=== PATIENT | male | born 1980 | race Caucasian/White ===

== ENCOUNTER 2017-11-01 16:35 | Emergency (ER) | payer OTHER ==
[~2017-11-01] VITALS: Ht 170.2 cm; Wt 104.3 kg
[~2017-11-01 16:35] MED LIST: ALBU90OI INH; CODGUAEL PO; CRUTCH USE; CYCL10 PO; DEXT30SU PO; HYDACE5 PO; IBUP600 PO; IBUP800 PO; Lisinopril2.5 MG; METO25ER; NAPR500 PO; Norco 5-325 Ta1 EACH PO; Percocet 5-3251 EACH PO; Ultram50 MG PO
[2017-11-01] MEDS ORDERED: HYDCHL12.5 PO (16:54)
[2017-11-01] MEDS ORDERED: LISI20 PO (16:54)
[2017-11-01 17:52] LABS: BASOPHILS ABSOLUTE AUTO 0.02 K/mm3 (0.00-0.23); BASOPHILS PERCENT AUTO 0 % (0-2); EOSINOPHILS ABSOLUTE AUTO 0.33 K/mm3 (0.00-0.68); EOSINOPHILS PERCENT AUTO 6 % (0-6); Hematocrit 45.4 % (37.0-53.0); Hemoglobin 15.5 g/dL (13.5-17.5); IMMATURE GRAN ABSOLUTE AUTO 0.01 K/mm3 (0.00-0.10); IMMATURE GRAN PERCENT AUTO 0 % (0-1); LYMPHOCYTES ABSOLUTE AUTO 2.27 K/mm3 (0.84-5.20); LYMPHOCYTES PERCENT AUTO 39 % (21-46); MONOCYTES PERCENT AUTO 7 % (4-13); Mean Corpuscular HGB 28.5 pg (26.0-34.0); Mean Corpuscular HGB Conc 34.1 g/dL (31.5-36.5); Mean Corpuscular Volume 84 fL (80-100); Mean Platelet Volume 11.2 fL (9.1-12.4); NEUTROPHILS ABSOLUTE AUTO 2.85 K/mm3 (1.96-9.15); NEUTROPHILS PERCENT AUTO 49 % (41-73); Platelet Count 174 K/mm3 (150-400); RDW Coefficient Variation 13.4 % (11.7-14.2); RDW Standard Deviation 40.1 fL (35.1-46.3); Red Blood Cell Count 5.44 M/mm3 (4.30-5.90); White Blood Cell Count 5.88 K/mm3 (4.00-11.30)
[2017-11-01 18:07] LABS: Alanine Aminotransfer (ALT/SGP 62 U/L (12-78); Albumin, Blood 3.6 g/dL (3.4-5.0); Albumin/Globulin Ratio 1.1 (0.8-1.8); Alk Phos 82 U/L (50-136); Anion Gap 9 mmol/L (6-16); Aspartate Aminotrans (AST/SGOT 29 U/L (12-37); Bilirubin, Total 0.4 mg/dL (0.1-1.0); Blood Urea Nitrogen 10 mg/dL (8-24); Bun/Creatinine Ratio 10.5 (12.0-20.0); CO2, Blood 23 mmol/L (21-32); Chloride, Blood 107 mmol/L (98-108); Creatinine, Blood 0.95 mg/dL (0.60-1.20); Globulin, Blood 3.4 g/dL (2.2-4.0); Glomerular Filtration Rate >60 (60-); Glucose, Blood 136 mg/dL (70-99); Sodium, Blood 139 mmol/L (136-145); Troponin I <0.015 ng/mL (0.000-0.040)
[2018-02-16] MEDS ORDERED: Omeprazole20 M1 PO (03:15)
[2018-02-16] MEDS ORDERED: ALBU90OI INH (03:28)
[2018-02-17] MEDS ORDERED: ACET325 PO (15:11)
[2018-02-17] MEDS ORDERED: LISI5 PO (15:12)
[2018-02-17] MEDS ORDERED: DOCU100 PO (15:12)
[2018-02-17] MEDS ORDERED: ROXICODONE5 MG PO (15:13)
[2018-09-20] MEDS ORDERED: IBUP800 PO (07:07)
== END 2017-11-01 22:29 | disposition home or self-care (01) ==
LOC: ER 16:35
PROVIDERS: Emergency Medicine
DX: R07.9 Chest pain, unspecified (principal); F17.200 Nicotine dependence, unspecified, uncomplicated; Z79.899 Other long term (current) drug therapy
CPT/HCPCS: 36415; 71046; 80053; 84484; 85025; 93005; 93010; 99284

== ENCOUNTER 2017-11-07 09:43 | Emergency (ER) | payer OTHER ==
[~2017-11-07] VITALS: Ht 170.2 cm; Wt 104.3 kg
[~2017-11-07 09:43] MED LIST changes: +HYDCHL12.5 PO; +LISI20 PO
[2017-11-07 10:41] LABS: BASOPHILS ABSOLUTE AUTO 0.01 K/mm3 (0.00-0.23); BASOPHILS PERCENT AUTO 0 % (0-2); EOSINOPHILS ABSOLUTE AUTO 0.27 K/mm3 (0.00-0.68); EOSINOPHILS PERCENT AUTO 5 % (0-6); Hematocrit 47.8 % (37.0-53.0); Hemoglobin 16.1 g/dL (13.5-17.5); IMMATURE GRAN ABSOLUTE AUTO 0.01 K/mm3 (0.00-0.10); IMMATURE GRAN PERCENT AUTO 0 % (0-1); LYMPHOCYTES ABSOLUTE AUTO 1.81 K/mm3 (0.84-5.20); LYMPHOCYTES PERCENT AUTO 36 % (21-46); MONOCYTES ABSOLUTE AUTO 0.34 K/mm3 (0.16-1.47); MONOCYTES PERCENT AUTO 7 % (4-13); Mean Corpuscular HGB Conc 33.7 g/dL (31.5-36.5); Mean Corpuscular Volume 83 fL (80-100); Mean Platelet Volume 11.5 fL (9.1-12.4); NEUTROPHILS ABSOLUTE AUTO 2.64 K/mm3 (1.96-9.15); NEUTROPHILS PERCENT AUTO 52 % (41-73); Platelet Count 185 K/mm3 (150-400); RDW Coefficient Variation 13.3 % (11.7-14.2); RDW Standard Deviation 39.8 fL (35.1-46.3); Red Blood Cell Count 5.76 M/mm3 (4.30-5.90); White Blood Cell Count 5.08 K/mm3 (4.00-11.30)
[2017-11-07 11:00] LABS: Alanine Aminotransfer (ALT/SGP 59 U/L (12-78); Albumin, Blood 3.9 g/dL (3.4-5.0); Albumin/Globulin Ratio 1.2 (0.8-1.8); Alk Phos 76 U/L (50-136); Anion Gap 5 mmol/L (6-16); Aspartate Aminotrans (AST/SGOT 20 U/L (12-37); Bilirubin, Total 0.3 mg/dL (0.1-1.0); Blood Urea Nitrogen 16 mg/dL (8-24); Bun/Creatinine Ratio 16.9 (12.0-20.0); CO2, Blood 28 mmol/L (21-32); Calcium, Blood 8.4 mg/dL (8.5-10.1); Chloride, Blood 105 mmol/L (98-108); Creatinine, Blood 0.95 mg/dL (0.60-1.20); Globulin, Blood 3.2 g/dL (2.2-4.0); Glomerular Filtration Rate >60 (60-); Glucose, Blood 106 mg/dL (70-99); Potassium, Blood 4.1 mmol/L (3.5-5.5); Sodium, Blood 138 mmol/L (136-145); Total Protein, Blood 7.1 g/dL (6.4-8.2)
[2017-11-07] MEDS ORDERED: Norco 5-325 Ta1 EACH PO (14:14)
[2018-02-16] MEDS ORDERED: Omeprazole20 M1 PO (03:15)
[2018-02-16] MEDS ORDERED: ALBU90OI INH (03:28)
[2018-02-17] MEDS ORDERED: ACET325 PO (15:11)
[2018-02-17] MEDS ORDERED: DOCU100 PO (15:12)
[2018-02-17] MEDS ORDERED: LISI5 PO (15:12)
[2018-02-17] MEDS ORDERED: ROXICODONE5 MG PO (15:13)
[2018-09-20] MEDS ORDERED: IBUP800 PO (07:07)
== END 2017-11-07 14:24 | disposition home or self-care (01) ==
LOC: ER 09:43
PROVIDERS: Psychiatry & Neurology Psychiatry
DX: K62.5 Hemorrhage of anus and rectum (principal); K76.0 Fatty (change of) liver, not elsewhere classified; I10 Essential (primary) hypertension; K57.10 Diverticulosis of small intestine without perforation or abscess without bleeding; F17.200 Nicotine dependence, unspecified, uncomplicated; Z79.899 Other long term (current) drug therapy
CPT/HCPCS: 36415; 74177; 80053; 82272; 83605; 83690; 85025; 86850; 86900; 86901; 93005; 93010; 96361; 96374; 96375; 99284; J2270; J2405; J7030; Q9967

== ENCOUNTER 2017-12-10 22:01 | Emergency (ER) | payer OTHER ==
[~2017-12-10] VITALS: Ht 170.2 cm; Wt 103.0 kg
[2017-12-10 22:35] LABS: BASOPHILS ABSOLUTE AUTO 0.03 K/mm3 (0.00-0.23); BASOPHILS PERCENT AUTO 0 % (0-2); EOSINOPHILS ABSOLUTE AUTO 0.19 K/mm3 (0.00-0.68); EOSINOPHILS PERCENT AUTO 2 % (0-6); Hemoglobin 14.4 g/dL (13.5-17.5); IMMATURE GRAN ABSOLUTE AUTO 0.03 K/mm3 (0.00-0.10); IMMATURE GRAN PERCENT AUTO 0 % (0-1); LYMPHOCYTES ABSOLUTE AUTO 2.25 K/mm3 (0.84-5.20); LYMPHOCYTES PERCENT AUTO 25 % (21-46); MONOCYTES ABSOLUTE AUTO 0.49 K/mm3 (0.16-1.47); MONOCYTES PERCENT AUTO 6 % (4-13); Mean Corpuscular HGB 27.4 pg (26.0-34.0); Mean Corpuscular HGB Conc 33.5 g/dL (31.5-36.5); Mean Corpuscular Volume 82 fL (80-100); Mean Platelet Volume 10.6 fL (9.1-12.4); NEUTROPHILS ABSOLUTE AUTO 5.99 K/mm3 (1.96-9.15); NEUTROPHILS PERCENT AUTO 67 % (41-73); Platelet Count 210 K/mm3 (150-400); RDW Coefficient Variation 12.6 % (11.7-14.2); RDW Standard Deviation 37.6 fL (35.1-46.3); Red Blood Cell Count 5.25 M/mm3 (4.30-5.90); White Blood Cell Count 8.98 K/mm3 (4.00-11.30)
[2017-12-10 22:53] LABS: Alanine Aminotransfer (ALT/SGP 53 U/L (12-78); Albumin, Blood 3.5 g/dL (3.4-5.0); Alk Phos 72 U/L (50-136); Anion Gap 8 mmol/L (6-16); Aspartate Aminotrans (AST/SGOT 22 U/L (12-37); Bilirubin, Total 0.2 mg/dL (0.1-1.0); Blood Urea Nitrogen 10 mg/dL (8-24); Bun/Creatinine Ratio 10.5 (12.0-20.0); CO2, Blood 26 mmol/L (21-32); Calcium, Blood 8.4 mg/dL (8.5-10.1); Chloride, Blood 107 mmol/L (98-108); Creatinine, Blood 0.96 mg/dL (0.60-1.20); Globulin, Blood 3.6 g/dL (2.2-4.0); Glomerular Filtration Rate >60 (60-); Glucose, Blood 106 mg/dL (70-99); Potassium, Blood 3.5 mmol/L (3.5-5.5); Sodium, Blood 141 mmol/L (136-145); Total Protein, Blood 7.1 g/dL (6.4-8.2)
[2017-12-11] MEDS ORDERED: Zofran Odt4 MG PO (00:06)
[2018-02-16] MEDS ORDERED: Omeprazole20 M1 PO (03:15)
[2018-02-16] MEDS ORDERED: ALBU90OI INH (03:28)
[2018-02-17] MEDS ORDERED: ACET325 PO (15:11)
[2018-02-17] MEDS ORDERED: LISI5 PO (15:12)
[2018-02-17] MEDS ORDERED: DOCU100 PO (15:12)
[2018-02-17] MEDS ORDERED: ROXICODONE5 MG PO (15:13)
[2018-09-20] MEDS ORDERED: IBUP800 PO (07:07)
== END 2017-12-11 00:15 | disposition home or self-care (01) ==
LOC: ER 22:01
PROVIDERS: Emergency Medicine
DX: G89.18 Other acute postprocedural pain (principal); R10.31 Right lower quadrant pain; R11.2 Nausea with vomiting, unspecified; F17.210 Nicotine dependence, cigarettes, uncomplicated
CPT/HCPCS: 36415; 74177; 80053; 83690; 85025; 96361; 96374; 96375; 96376; 99284; J2270; J2405; J7030; Q9967

== ENCOUNTER 2017-12-28 16:40 | Emergency (ER) | payer OTHER ==
[~2017-12-28] VITALS: Ht 170.2 cm; Wt 102.5 kg
[~2017-12-28 16:40] MED LIST changes: +Zofran Odt4 MG PO
[2017-12-28 17:59] LABS: BASOPHILS ABSOLUTE AUTO 0.02 K/mm3 (0.00-0.23); BASOPHILS PERCENT AUTO 0 % (0-2); EOSINOPHILS ABSOLUTE AUTO 0.22 K/mm3 (0.00-0.68); EOSINOPHILS PERCENT AUTO 4 % (0-6); Hematocrit 45.2 % (37.0-53.0); Hemoglobin 14.7 g/dL (13.5-17.5); IMMATURE GRAN ABSOLUTE AUTO 0.02 K/mm3 (0.00-0.10); IMMATURE GRAN PERCENT AUTO 0 % (0-1); LYMPHOCYTES ABSOLUTE AUTO 1.59 K/mm3 (0.84-5.20); LYMPHOCYTES PERCENT AUTO 26 % (21-46); MONOCYTES ABSOLUTE AUTO 0.45 K/mm3 (0.16-1.47); MONOCYTES PERCENT AUTO 7 % (4-13); Mean Corpuscular HGB 27.4 pg (26.0-34.0); Mean Corpuscular HGB Conc 32.5 g/dL (31.5-36.5); Mean Corpuscular Volume 84 fL (80-100); Mean Platelet Volume 10.7 fL (9.1-12.4); NEUTROPHILS ABSOLUTE AUTO 3.86 K/mm3 (1.96-9.15); NEUTROPHILS PERCENT AUTO 63 % (41-73); Platelet Count 170 K/mm3 (150-400); RDW Coefficient Variation 14.2 % (11.7-14.2); RDW Standard Deviation 43.2 fL (35.1-46.3); Red Blood Cell Count 5.37 M/mm3 (4.30-5.90); White Blood Cell Count 6.16 K/mm3 (4.00-11.30)
[2017-12-28 18:22] LABS: Alanine Aminotransfer (ALT/SGP 36 U/L (12-78); Albumin, Blood 3.8 g/dL (3.4-5.0); Albumin/Globulin Ratio 1.1 (0.8-1.8); Alk Phos 77 U/L (50-136); Anion Gap 7 mmol/L (6-16); Aspartate Aminotrans (AST/SGOT 23 U/L (12-37); Bilirubin, Total 0.5 mg/dL (0.1-1.0); Blood Urea Nitrogen 12 mg/dL (8-24); Bun/Creatinine Ratio 14.5 (12.0-20.0); CO2, Blood 26 mmol/L (21-32); Calcium, Blood 8.2 mg/dL (8.5-10.1); Chloride, Blood 107 mmol/L (98-108); Creatinine, Blood 0.83 mg/dL (0.60-1.20); Globulin, Blood 3.5 g/dL (2.2-4.0); Glomerular Filtration Rate >60 (60-); Glucose, Blood 115 mg/dL (70-99); Potassium, Blood 3.8 mmol/L (3.5-5.5); Sodium, Blood 140 mmol/L (136-145); Total Protein, Blood 7.3 g/dL (6.4-8.2)
[2017-12-28] MEDS ORDERED: Cipro500 MG PO (20:26)
[2017-12-28] MEDS ORDERED: Flagyl500 MG PO (20:26)
[2018-02-16] MEDS ORDERED: Omeprazole20 M1 PO (03:15)
[2018-02-16] MEDS ORDERED: ALBU90OI INH (03:28)
[2018-02-17] MEDS ORDERED: ACET325 PO (15:11)
[2018-02-17] MEDS ORDERED: LISI5 PO (15:12)
[2018-02-17] MEDS ORDERED: DOCU100 PO (15:12)
[2018-02-17] MEDS ORDERED: ROXICODONE5 MG PO (15:13)
[2018-09-20] MEDS ORDERED: IBUP800 PO (07:07)
== END 2017-12-28 20:37 | disposition home or self-care (01) ==
LOC: ER 16:40
PROVIDERS: Emergency Medicine
DX: R10.31 Right lower quadrant pain (principal); K92.1 Melena; Z88.8 Allergy status to other drugs, medicaments and biological substances; F17.210 Nicotine dependence, cigarettes, uncomplicated
CPT/HCPCS: 36415; 74177; 80053; 83690; 85025; 96361; 96374; 99284; J1170; J7030; Q9967

== ENCOUNTER 2018-07-24 19:34 | Emergency (ER) | payer OTHER ==
[~2018-07-24] VITALS: Ht 170.2 cm; Wt 77.1 kg
[~2018-07-24 19:34] MED LIST changes: +ACET325 PO; +Cipro500 MG PO; +DOCU100 PO; +Flagyl500 MG PO; +LISI5 PO; +Omeprazole20 M1 PO; +ROXICODONE5 MG PO
== END 2018-07-24 20:37 | disposition home or self-care (01) ==
LOC: ER 19:34
DX: S00.432A Contusion of left ear, initial encounter (principal); S00.93XA Contusion of unspecified part of head, initial encounter; I10 Essential (primary) hypertension; F17.210 Nicotine dependence, cigarettes, uncomplicated; Z88.8 Allergy status to other drugs, medicaments and biological substances; Y04.2XXA Assault by strike against or bumped into by another person, initial encounter
CPT/HCPCS: 70450; 99284-25

== ENCOUNTER 2019-04-09 11:50 | Inpatient (IN) | payer OTHER ==
[~2019-04-09] VITALS: Ht 170.2 cm; Wt 84.0 kg
[2019-04-09 12:18] LABS: BASOPHILS ABSOLUTE AUTO 0.06 K/mm3 (0.00-0.23); BASOPHILS PERCENT AUTO 1 % (0-2); EOSINOPHILS PERCENT AUTO 3 % (0-6); Hematocrit 47.4 % (37.0-53.0); Hemoglobin 15.1 g/dL (13.5-17.5); IMMATURE GRAN ABSOLUTE AUTO 0.01 K/mm3 (0.00-0.10); IMMATURE GRAN PERCENT AUTO 0 % (0-1); LYMPHOCYTES ABSOLUTE AUTO 1.23 K/mm3 (0.84-5.20); LYMPHOCYTES PERCENT AUTO 17 % (21-46); MONOCYTES ABSOLUTE AUTO 0.33 K/mm3 (0.16-1.47); MONOCYTES PERCENT AUTO 4 % (4-13); Mean Corpuscular HGB 27.5 pg (26.0-34.0); Mean Corpuscular HGB Conc 31.9 g/dL (31.5-36.5); Mean Corpuscular Volume 86 fL (80-100); Mean Platelet Volume 11.1 fL (9.1-12.4); NEUTROPHILS ABSOLUTE AUTO 5.59 K/mm3 (1.96-9.15); NEUTROPHILS PERCENT AUTO 75 % (41-73); Platelet Count 216 K/mm3 (150-400); RDW Coefficient Variation 13.4 % (11.7-14.2); RDW Standard Deviation 42.5 fL (35.1-46.3); Red Blood Cell Count 5.49 M/mm3 (4.30-5.90); White Blood Cell Count 7.42 K/mm3 (4.00-11.30)
[2019-04-09 12:39] LABS: Alanine Aminotransfer (ALT/SGP 36 U/L (12-78); Albumin, Blood 3.4 g/dL (3.4-5.0); Albumin/Globulin Ratio 0.9 (0.8-1.8); Alk Phos 90 U/L (50-136); Anion Gap 4 mmol/L (6-16); Aspartate Aminotrans (AST/SGOT 26 U/L (12-37); Bilirubin, Total 0.5 mg/dL (0.1-1.0); Blood Urea Nitrogen 15 mg/dL (8-24); Bun/Creatinine Ratio 16.3 (12.0-20.0); CO2, Blood 30 mmol/L (21-32); Chloride, Blood 106 mmol/L (98-108); Creatinine, Blood 0.92 mg/dL (0.60-1.20); Globulin, Blood 3.8 g/dL (2.2-4.0); Glomerular Filtration Rate >60 (60-); Glucose, Blood 96 mg/dL (70-99); Potassium, Blood 4.1 mmol/L (3.5-5.5); Sodium, Blood 140 mmol/L (136-145); Total Protein, Blood 7.2 g/dL (6.4-8.2); Troponin I 0.028 ng/mL (0.000-0.040)
[2019-04-09 14:22] LABS: Source, Urine Clean Catch
[2019-04-09 14:25] LABS: Bilirubin, Urine Neg (Neg); Blood, Urine Neg (Neg); Glucose Qualitative, Urine Neg (Neg); Ketones, Urine Neg (Neg); Leukocyte Esterase, Urine Neg (Neg); Nitrite, Urine Neg (Neg); Protein, Urine 1+ (Neg); Specific Gravity, Urine 1.015 (1.003-1.022); Urobilinogen, Urine NORM (Normal)
[2019-04-09 14:27] LABS: Appearance, Urine Clear (Clear); Color, Urine Yellow (P-Yellow)
[2019-04-09 14:37] LABS: U Amphetamine Screen DETECTED; U Barbituate Screen Not Detected; U Benzodiazapine Screen Not Detected; U Buprenorphine Screen Not Detected; U Cannabinoids Screen Not Detected; U Cocaine Screen Not Detected; U Methadone Screen Not Detected; U Methamphetamine Screen Not Detected; U Opiates Screen Not Detected; U Oxycodone Screen Not Detected; U Phencyclidine Screen Not Detected; U Propoxyphene Screen Not Detected
[2019-04-10 00:54] LABS: Hematocrit 46.7 % (37.0-53.0); Mean Corpuscular HGB 27.3 pg (26.0-34.0); Mean Corpuscular HGB Conc 32.1 g/dL (31.5-36.5); Mean Corpuscular Volume 85 fL (80-100); Mean Platelet Volume 10.6 fL (9.1-12.4); Platelet Count 217 K/mm3 (150-400); RDW Coefficient Variation 13.4 % (11.7-14.2); RDW Standard Deviation 41.1 fL (35.1-46.3); Red Blood Cell Count 5.49 M/mm3 (4.30-5.90); White Blood Cell Count 7.34 K/mm3 (4.00-11.30)
[2019-04-10 01:09] LABS: Anion Gap 6 mmol/L (6-16); Blood Urea Nitrogen 14 mg/dL (8-24); Bun/Creatinine Ratio 16.8 (12.0-20.0); CO2, Blood 27 mmol/L (21-32); Calcium, Blood 8.4 mg/dL (8.5-10.1); Chloride, Blood 107 mmol/L (98-108); Creatinine, Blood 0.83 mg/dL (0.60-1.20); Glomerular Filtration Rate >60 (60-); Glucose, Blood 90 mg/dL (70-99); Potassium, Blood 4.2 mmol/L (3.5-5.5); Sodium, Blood 140 mmol/L (136-145)
--- NOTE | 2019-04-10 01:27 | NUR ---
Assumed care of pt at approx 1999. Report recieved from ATUL Gross. Pt transferred from ED via [facility] transported with RN at bedside. Pt hypertensive and tachycardic at time of arrival. Pt denies chest pain, chest pressure, or SOB. Pt lethargic and falling in and out of sleep frequently. Pt oriented x4, states generalized pain but cannot specify location or other qualities, pt falls asleep before sentences are finished. Pt awakens to sound. Pt with impulsive and sporatic movements. Educated pt on plan of care for this night, oriented to room, educated on fall prevention. Bed alarm in place, pt calls appropriately, uses urinal for voiding. Pt has been sleeping soundly since arrival to unit. See admission assessment for detailed assessment. No events on tele this shift. MD notified of hypertension, orders recieved and will medicate per orders. Will continue to monitor.
--- NOTE | 2019-04-10 05:21 | NUR ---
Shift Summary No acute changes this shift, pt remains hypertensive, sleeping througout this shift. NO events on tele. Pt in no apparent sign of distress. Breathing easy and unlabored. Pt remains with wheezes throughout. Pt on RA with o2 saturations >90%. Pt does not use call light, needs redirection frequently, is pleasant. Pt uses urinal at bedside independantly. Pt is able to make needs known, denies chest pain or pressure, denies SOB. Bed in lowest and locked position, remains with bed alarm in place for pt safety and reduction of fall risk. Will continue to monitor.
--- NOTE | 2019-04-10 15:28 | NUR ---
NOTE PT RESTING QUIETLY. ST. RATE 105-118 BPM. CONTINIOUS BIOX 94% OR HIGHER. PT GIVEN ORAL BP MEDICATIONS PER DR GALARZA DIRECTION. PT HAS BEEN ORIENTED BUT CIWA 8-14. ACCORDING TO THE PT HIS WITHDRAWELS AEN'T DISORIENTION BUT EXTREME RAGE AND PHYSICAL VIOLENCE. PT ASKED FOR A LOARGER ATIVAN DOSE. CALLED DR CONTI WHO GAVE ORDER FOR LARGER DOSE. ATIVAN 2MG GIVEN. PT SLEEPING. EASILY AROUSABLE. BED ALARM ON. CONTINUE POT.
--- NOTE | 2019-04-10 21:31 | NUR ---
FAMILY MEMBER UPDATE VERBAL PERMISSION GIVEN TO UPDATE MOTHER VIA PHONE. WILL CONTACT MOTHER AND PROVIDE UPDATE.
[2019-04-11 05:08] LABS: BASOPHILS ABSOLUTE AUTO 0.05 K/mm3 (0.00-0.23); BASOPHILS PERCENT AUTO 1 % (0-2); EOSINOPHILS ABSOLUTE AUTO 0.27 K/mm3 (0.00-0.68); EOSINOPHILS PERCENT AUTO 4 % (0-6); Hematocrit 52.4 % (37.0-53.0); Hemoglobin 16.9 g/dL (13.5-17.5); IMMATURE GRAN ABSOLUTE AUTO 0.02 K/mm3 (0.00-0.10); IMMATURE GRAN PERCENT AUTO 0 % (0-1); LYMPHOCYTES ABSOLUTE AUTO 1.72 K/mm3 (0.84-5.20); LYMPHOCYTES PERCENT AUTO 25 % (21-46); MONOCYTES ABSOLUTE AUTO 0.48 K/mm3 (0.16-1.47); MONOCYTES PERCENT AUTO 7 % (4-13); Mean Corpuscular HGB Conc 32.3 g/dL (31.5-36.5); Mean Corpuscular Volume 84 fL (80-100); Mean Platelet Volume 10.8 fL (9.1-12.4); NEUTROPHILS ABSOLUTE AUTO 4.47 K/mm3 (1.96-9.15); NEUTROPHILS PERCENT AUTO 64 % (41-73); Platelet Count 221 K/mm3 (150-400); RDW Coefficient Variation 13.9 % (11.7-14.2); RDW Standard Deviation 41.1 fL (35.1-46.3); Red Blood Cell Count 6.25 M/mm3 (4.30-5.90); White Blood Cell Count 7.01 K/mm3 (4.00-11.30)
[2019-04-11 05:26] LABS: Albumin, Blood 3.4 g/dL (3.4-5.0); Anion Gap 8 mmol/L (6-16); Blood Urea Nitrogen 17 mg/dL (8-24); Bun/Creatinine Ratio 18.6 (12.0-20.0); CO2, Blood 26 mmol/L (21-32); Calcium, Blood 9.1 mg/dL (8.5-10.1); Chloride, Blood 104 mmol/L (98-108); Creatinine, Blood 0.91 mg/dL (0.60-1.20); Glomerular Filtration Rate >60 (60-); Glucose, Blood 90 mg/dL (70-99); Potassium, Blood 4.2 mmol/L (3.5-5.5); Sodium, Blood 138 mmol/L (136-145)
--- NOTE | 2019-04-11 06:45 | NUR ---
SHIFT SUMMARY PT HAS REMAINED AOX4 THROUGHOUT SHIFT. VSS. COOPERATIVE WITH CARE. PT HAS RESTED WELL THROUGHOUT THE NIGHT, WAKING EASILY FOR CARE. CIWA HAS RANGED FROM 8-13 THROUGHOUT THE NIGHT AND PATIENT REQUESTING ATIVAN APPROXIMATELY Q2 FOR RELIEF OF WITHDRAWAL SYMPTOMS. O2 SATS HAVE REMAINED >90% ON RA. PT WITH ONE EPISODE OF DYSPNEA THIS AM THAT DISSIPATED WITH BREATHING TREATMENT, SATS REMAINED @ 94-96% THROUGHOUT EPISODE. PT CONTINUES TO HAVE SPORATIC AND IMPULSIVE MOVEMENTS, CONTINUES USE URINAL AT BEDSIDE WITHOUT DIFFICULTY. NO OTHER CHANGES NOTED FROM INITIAL ASSESSMENT. WILL CONTINUE TO MONITOR AND REPORT TO ONCOMING SHIFT RN. BED IN LOW POSITION, CALL LIGHT IN REACH. BED ALARM SET FOR SAFETY.
--- NOTE | 2019-04-11 10:25 | NUR ---
AM NOTE... ASSUMED CARE OF PT APROX 0700, PT IS A&Ox4 AND CURRENTLY ADMITTED FOR PULMONARY EDEMA, PT IS ALSO BEING TREATED FOR ETOH W/D. PT IS SLEEPING WELL BUT WAKES TO VERBAL STIMULI. TELE INTACT, ST AT 115, PT'S BP 159/109, NO EDEMA NOTED ON ASSESSMENT. L/S DIM T/O AND CRACKLES NOTED IN THE BASES, PT IS ON RA W/RR AT 18, EVEN AND UNLABORED. BT PRESENT AND HYPOACTIVE, ABD IS SLIGHTLY FIRM AND NONTENDER TO PALP. PT STATES THAT HE IS HAVING PAIN FROM AN INGUINAL HERNIA. PT IS BEING TREATED PER CWIA PROTOCOL. CALL LIGHT IN REACH, BED ALARM IS ON WILL CONTINUE TO MONITOR.
--- NOTE | 2019-04-11 18:45 | NUR ---
SHIFT SUMMARY. PT HAS BEEN PLEASENT AND COOPERATIVE ALL SHIFT UNTIL APROX 1600 WHEN PT'S AUNT CAME IN TO VIST. AT THIS TIME THE PT BECAME VERY AGRESSIVE AND ANGRY TOWARDS STAFF AND STATED THAT HE WANTED TO GO HOME, EDUCATION WAS PROVIDED TO PT ABOUT HIS CURRENT CONDITION AND THE RISK VS. BENEFITS OF LEAVING AMA. PT STILL WANTED TO LEAVE. PROVIDER WAS CALLED. AMA PAPER WORK WAS FILLED OUT, IV WAS TAKEN OUT AND PT DECIDED TO STAY. PROVIDER WAS CALLED AGAIN AND NOTIFIED THAT THE PT WAS GOING TO STAY. PT HAS BEEN VERY ANGRY AND AGGRESSIVE TWARDS STAFF. PT HAS BEEN MEDICATED PER EMAR FOR CWIA'S OF 9. CALL LIGHT IN REACH, BED IS LOCKED AND LOW WILL CONTINUE TO MONITOR UNTIL REPORT IS GIVEN TO ONCOMING RN.
[2019-04-12 04:10] LABS: Anion Gap 7 mmol/L (6-16); Blood Urea Nitrogen 24 mg/dL (8-24); Bun/Creatinine Ratio 24.3 (12.0-20.0); CO2, Blood 27 mmol/L (21-32); Calcium, Blood 9.3 mg/dL (8.5-10.1); Chloride, Blood 100 mmol/L (98-108); Creatinine, Blood 0.99 mg/dL (0.60-1.20); Glomerular Filtration Rate >60 (60-); Glucose, Blood 104 mg/dL (70-99); Potassium, Blood 4.5 mmol/L (3.5-5.5); Sodium, Blood 134 mmol/L (136-145)
--- NOTE | 2019-04-12 06:00 | NUR ---
SHIFT SUMMARY PT HAS REMAINED AOX4 THROGHOUT SHIFT. VSS. PLEASANT AND COOPERATIVE WITH CARE. PT REQUESTING SHOWER AT START OF SHIFT AND LINEN CHANGE, REPORTS FEELING MUCH BETTER AFTER SHOWER. O2 SATS HAVE REMAINED >90% ON RA THROUGHOUT THE NIGHT. PT REPORTING SOME DYSPNEA ON EXERTION WHEN WALKING FROM BATHROOM TO BED- O2 SATS OF 99% ON AMBULATION WHICH IS INCREASE FROM WHEN AT REST. PT ENCOURAGED TO INCREASE ACTIVITY TOLERATED. PT MEDICATED MULTIPLE TIMES FOR CIWA OF 7-8. PT WITHDRAWAL APPEARS MUCH IMPROVED FROM PREVIOUS NIGHT, SPEECH WITH IMPROVED CLARITY, BUT STILL OCCASIONALLY SLURRED. PT POLITE WITH REQUESTS, SAYING PLEASE AND THANK YOU WHEN CARE PROVIDED. HAS RESTED WELL THROUGHOUT MUCH OF THE NIGHT, USING URINAL AT BEDSIDE. NO OTHER CHANGES FROM INITIAL ASSESSMENT. WILL CONTINUE TO MONITOR AND REPORT TO ONCOMING SHIFT RN. BED IN LOW POSITION, CALL LIGHT IN REACH. BED ALARM SET FOR SAFETY.
[2019-04-12] MEDS ORDERED: AMLO5 PO (09:55)
[2019-04-12] MEDS ORDERED: ASPI81CH PO (09:56)
[2019-04-12] MEDS ORDERED: LOSA25 PO (09:58)
[2019-04-12] MEDS ORDERED: FOLI1 PO (09:59)
[2019-04-12] MEDS ORDERED: Toprol Xl25 MG PO (10:00)
[2019-04-12] MEDS ORDERED: NICO21TP TOP (10:01)
[2019-04-12] MEDS ORDERED: SPIR25 PO (10:02)
[2019-04-12] MEDS ORDERED: B-1100 MG PO (10:05)
[2019-04-12] MEDS ORDERED: FURO40 PO (10:06)
[2019-04-12] MEDS ORDERED: CHLO10 PO (10:09)
--- NOTE | 2019-04-12 15:28 | NUR ---
DISCHARGE NOTE PT STABLE FOR DISCHARGE. IV REMOVED. DISCHARGE INSTRUCTIONS AND DISCHARGE MEDICATIONS REVIEWED WITH PT. PT VERBALIZES UNDERSTANDING AND DENIES QUESTIONS. PT DISCHARGE VIA WHEELCHAIR.
== END 2019-04-12 15:26 | disposition home or self-care (01) | DRG 280 ==
LOC: ER 11:50 → PCU 18:25
PROVIDERS: Emergency Medicine; Family Medicine; Internal Medicine; Nurse Practitioner Acute Care; ADMIT Internal Medicine
DX: I11.0 Hypertensive heart disease with heart failure (principal); I21.A1 Myocardial infarction type 2; I50.21 Acute systolic (congestive) heart failure; F10.239 Alcohol dependence with withdrawal, unspecified; I42.6 Alcoholic cardiomyopathy; G47.33 Obstructive sleep apnea (adult) (pediatric); M54.9 Dorsalgia, unspecified; Z91.19 Patient's noncompliance with other medical treatment and regimen; F15.10 Other stimulant abuse, uncomplicated; F43.10 Post-traumatic stress disorder, unspecified; E78.5 Hyperlipidemia, unspecified; I27.20 Pulmonary hypertension, unspecified; I34.0 Nonrheumatic mitral (valve) insufficiency
CPT/HCPCS: 36415; 71046; 71260; 80048; 80053; 80069; 83735; 83880; 84484; 85025; 85027; 85379; 87040; 93005; 93010; 93306; 94640; 94660; 94760; 94762; 96361; 96374-59; 96375-59; 96376; 99285-25; A9270; G0480; J0360; J1650; J1885; J1940; J2060; J7030; Q9967

== ENCOUNTER 2019-07-08 20:48 | Emergency (ER) | payer SELFPAY ==
[~2019-07-08 20:48] MED LIST changes: +AMLO5 PO; +ASPI81CH PO; +B-1100 MG PO; +CHLO10 PO; +FOLI1 PO; +FURO40 PO; +LOSA25 PO; +NICO21TP TOP; +SPIR25 PO; +Toprol Xl25 MG PO
== END 2019-07-08 21:45 | disposition left against medical advice (07) ==
LOC: ER 20:48
DX: Z53.21 Procedure and treatment not carried out due to patient leaving prior to being seen by health care provider (principal)

== ENCOUNTER 2019-07-09 09:34 | Emergency (ER) | payer SELFPAY ==
[~2019-07-09] VITALS: Ht 170.2 cm; Wt 81.7 kg
[2019-07-09 10:13] LABS: BASOPHILS ABSOLUTE AUTO 0.03 K/mm3 (0.00-0.23); BASOPHILS PERCENT AUTO 1 % (0-2); EOSINOPHILS ABSOLUTE AUTO 0.19 K/mm3 (0.00-0.68); EOSINOPHILS PERCENT AUTO 3 % (0-6); Hematocrit 49.6 % (37.0-53.0); Hemoglobin 15.9 g/dL (13.5-17.5); IMMATURE GRAN ABSOLUTE AUTO 0.02 K/mm3 (0.00-0.10); IMMATURE GRAN PERCENT AUTO 0 % (0-1); LYMPHOCYTES ABSOLUTE AUTO 1.96 K/mm3 (0.84-5.20); LYMPHOCYTES PERCENT AUTO 31 % (21-46); MONOCYTES ABSOLUTE AUTO 0.37 K/mm3 (0.16-1.47); MONOCYTES PERCENT AUTO 6 % (4-13); Mean Corpuscular HGB 27.7 pg (26.0-34.0); Mean Corpuscular HGB Conc 32.1 g/dL (31.5-36.5); Mean Corpuscular Volume 86 fL (80-100); NEUTROPHILS ABSOLUTE AUTO 3.84 K/mm3 (1.96-9.15); NEUTROPHILS PERCENT AUTO 60 % (41-73); Platelet Count 195 K/mm3 (150-400); RDW Standard Deviation 44.2 fL (35.1-46.3); Red Blood Cell Count 5.75 M/mm3 (4.30-5.90); White Blood Cell Count 6.41 K/mm3 (4.00-11.30)
[2019-07-09 10:38] LABS: Troponin I 0.021 ng/mL (0.000-0.040)
[2019-07-09 10:39] LABS: Alanine Aminotransfer (ALT/SGP 53 U/L (12-78); Albumin, Blood 3.5 g/dL (3.4-5.0); Albumin/Globulin Ratio 0.9 (0.8-1.8); Alk Phos 88 U/L (50-136); Anion Gap 8 mmol/L (6-16); Aspartate Aminotrans (AST/SGOT 40 U/L (12-37); Bilirubin, Total 0.2 mg/dL (0.1-1.0); Blood Urea Nitrogen 12 mg/dL (8-24); Bun/Creatinine Ratio 14.2 (12.0-20.0); CO2, Blood 28 mmol/L (21-32); Calcium, Blood 8.4 mg/dL (8.5-10.1); Chloride, Blood 107 mmol/L (98-108); Creatinine, Blood 0.84 mg/dL (0.60-1.20); Globulin, Blood 3.9 g/dL (2.2-4.0); Glomerular Filtration Rate >60 (60-); Glucose, Blood 103 mg/dL (70-99); Sodium, Blood 143 mmol/L (136-145); Total Protein, Blood 7.4 g/dL (6.4-8.2)
[2019-07-09 10:54] LABS: Source, Urine Clean Catch
[2019-07-09 10:59] LABS: Bilirubin, Urine Neg (Neg); Blood, Urine Neg (Neg); Glucose Qualitative, Urine Neg (Neg); Ketones, Urine Neg (Neg); Leukocyte Esterase, Urine Neg (Neg); Nitrite, Urine Neg (Neg); Protein, Urine Neg (Neg); Urobilinogen, Urine NORM (Normal)
[2019-07-09 11:05] LABS: Appearance, Urine Clear (Clear); Color, Urine Yellow (P-Yellow)
[2019-07-09 11:20] LABS: U Amphetamine Screen DETECTED; U Barbituate Screen Not Detected; U Benzodiazapine Screen Not Detected; U Buprenorphine Screen Not Detected; U Cannabinoids Screen Not Detected; U Cocaine Screen Not Detected; U Methadone Screen Not Detected; U Methamphetamine Screen DETECTED; U Opiates Screen Not Detected; U Oxycodone Screen Not Detected; U Phencyclidine Screen Not Detected; U Propoxyphene Screen Not Detected
[2019-07-09 11:31] LABS: Magnesium, Blood 2.2 mg/dL (1.6-2.4)
== END 2019-07-09 13:05 | disposition left against medical advice (07) ==
LOC: ER 09:34
PROVIDERS: Emergency Medicine
DX: I50.9 Heart failure, unspecified (principal); F15.10 Other stimulant abuse, uncomplicated; R07.9 Chest pain, unspecified; I10 Essential (primary) hypertension; Z88.8 Allergy status to other drugs, medicaments and biological substances; F17.200 Nicotine dependence, unspecified, uncomplicated
CPT/HCPCS: 36415; 71046; 80053; 81003; 83690; 83735; 83880; 84484; 85025; 93005; 93010; 96374; 99285-25; G0480; J7030

== ENCOUNTER 2019-10-07 08:09 | Emergency (ER) | payer OTHER ==
[~2019-10-07] VITALS: Ht 170.2 cm; Wt 87.1 kg
[2019-10-07] MEDS ORDERED: Vistaril25 MG PO (10:22)
[2019-10-07] MEDS ORDERED: Lasix40 MG PO (10:22)
[2019-10-07] MEDS ORDERED: BENZ100A PO (10:22)
== END 2019-10-07 10:34 | disposition home or self-care (01) ==
LOC: ER 08:09
DX: J20.9 Acute bronchitis, unspecified (principal); I11.0 Hypertensive heart disease with heart failure; I50.9 Heart failure, unspecified; F17.200 Nicotine dependence, unspecified, uncomplicated; Z88.8 Allergy status to other drugs, medicaments and biological substances; Z79.899 Other long term (current) drug therapy; Z86.59 Personal history of other mental and behavioral disorders
CPT/HCPCS: 71046; 99283-25

== ENCOUNTER 2019-10-20 18:11 | Emergency (ER) | payer OTHER ==
[~2019-10-20] VITALS: Ht 170.2 cm; Wt 89.8 kg
[~2019-10-20 18:11] MED LIST changes: +BENZ100A PO; +Lasix40 MG PO; +Vistaril25 MG PO
[2019-10-20 18:29] LABS: BASOPHILS ABSOLUTE AUTO 0.04 K/mm3 (0.00-0.23); BASOPHILS PERCENT AUTO 1 % (0-2); EOSINOPHILS ABSOLUTE AUTO 0.18 K/mm3 (0.00-0.68); EOSINOPHILS PERCENT AUTO 2 % (0-6); Hematocrit 50.7 % (37.0-53.0); Hemoglobin 16.4 g/dL (13.5-17.5); IMMATURE GRAN ABSOLUTE AUTO 0.07 K/mm3 (0.00-0.10); IMMATURE GRAN PERCENT AUTO 1 % (0-1); LYMPHOCYTES ABSOLUTE AUTO 1.62 K/mm3 (0.84-5.20); LYMPHOCYTES PERCENT AUTO 21 % (21-46); MONOCYTES ABSOLUTE AUTO 0.46 K/mm3 (0.16-1.47); MONOCYTES PERCENT AUTO 6 % (4-13); Mean Corpuscular HGB 27.2 pg (26.0-34.0); Mean Corpuscular HGB Conc 32.3 g/dL (31.5-36.5); Mean Corpuscular Volume 84 fL (80-100); Mean Platelet Volume 10.6 fL (9.1-12.4); NEUTROPHILS ABSOLUTE AUTO 5.35 K/mm3 (1.96-9.15); NEUTROPHILS PERCENT AUTO 69 % (41-73); Platelet Count 211 K/mm3 (150-400); RDW Coefficient Variation 14.1 % (11.7-14.2); Red Blood Cell Count 6.02 M/mm3 (4.30-5.90); White Blood Cell Count 7.72 K/mm3 (4.00-11.30)
[2019-10-20 18:42] LABS: International Normalized Ratio 0.92; Prothrombin Time Results 9.8 Sec (9.7-11.5)
[2019-10-20 18:46] LABS: Alanine Aminotransfer (ALT/SGP 52 U/L (12-78); Albumin, Blood 3.5 g/dL (3.4-5.0); Albumin/Globulin Ratio 0.9 (0.8-1.8); Alk Phos 69 U/L (50-136); Anion Gap 7 mmol/L (6-16); Aspartate Aminotrans (AST/SGOT 50 U/L (12-37); Bilirubin, Total 0.4 mg/dL (0.1-1.0); Blood Urea Nitrogen 15 mg/dL (8-24); Bun/Creatinine Ratio 14.9 (12.0-20.0); CO2, Blood 25 mmol/L (21-32); Calcium, Blood 8.5 mg/dL (8.5-10.1); Chloride, Blood 106 mmol/L (98-108); Creatinine, Blood 1.01 mg/dL (0.60-1.20); Ethanol (Alcohol), Blood, Med 45 mg/dL; Globulin, Blood 4.1 g/dL (2.2-4.0); Glomerular Filtration Rate >60 (60-); Glucose, Blood 106 mg/dL (70-99); Potassium, Blood 3.8 mmol/L (3.5-5.5); Sodium, Blood 138 mmol/L (136-145); Total Protein, Blood 7.6 g/dL (6.4-8.2)
[2019-10-20 19:46] LABS: Bilirubin, Urine Neg (Neg); Blood, Urine 3+ (Neg); Glucose Qualitative, Urine Neg (Neg); Ketones, Urine Neg (Neg); Leukocyte Esterase, Urine Neg (Neg); Nitrite, Urine Neg (Neg); Protein, Urine 1+ (Neg); Source, Urine Voided; Specific Gravity, Urine 1.015 (1.003-1.022); Urobilinogen, Urine NORM (Normal); pH, Urine 6.5 (5.0-8.0)
[2019-10-20 20:18] LABS: Appearance, Urine Clear (Clear); Color, Urine Yellow (P-Yellow)
[2019-10-20 20:21] LABS: Bacteria Not Seen /hpf; Squamous Epithelial Cells Not Seen /hpf (Few); White Blood Cells, Urine Rare /hpf (0-5)
[2019-10-20] MEDS ORDERED: IBUP800 PO (20:43)
== END 2019-10-20 21:02 | disposition home or self-care (01) ==
LOC: ER 18:11
PROVIDERS: Emergency Medicine
DX: S30.1XXA Contusion of abdominal wall, initial encounter (principal); I11.0 Hypertensive heart disease with heart failure; I50.9 Heart failure, unspecified; F17.200 Nicotine dependence, unspecified, uncomplicated; Z23 Encounter for immunization; Z88.8 Allergy status to other drugs, medicaments and biological substances; V63.5XXA Driver of heavy transport vehicle injured in collision with car, pick-up truck or van in traffic accident, initial encounter
CPT/HCPCS: 70450; 71045; 71260; 72125; 72170; 73070; 73562-LT; 73590; 74177; 80053; 81001; 83690; 85025; 85610; 90471; 90714; 96374-59; 96375-59; 99285-25; A9270-GY; G0480; J2270; J2405; Q9967

== ENCOUNTER 2020-02-03 12:37 | Emergency (ER) | payer OTHER ==
[~2020-02-03] VITALS: Ht 170.2 cm; Wt 96.6 kg
[~2020-02-03 12:37] MED LIST changes: +FURO20 PO; +Florastor250 MG PO; +HYDR1TAB94 PO; +NICO2 PO; +OMEP20ER PO; +ONDA4ODT MM; +POTCHL20ER PO; +Prinivil10 MG PO
[2020-02-03 13:00] LABS: BASOPHILS ABSOLUTE AUTO 0.03 K/mm3 (0.00-0.23); BASOPHILS PERCENT AUTO 1 % (0-2); EOSINOPHILS ABSOLUTE AUTO 0.13 K/mm3 (0.00-0.68); EOSINOPHILS PERCENT AUTO 2 % (0-6); Hematocrit 43.5 % (37.0-53.0); Hemoglobin 13.3 g/dL (13.5-17.5); IMMATURE GRAN ABSOLUTE AUTO 0.01 K/mm3 (0.00-0.10); IMMATURE GRAN PERCENT AUTO 0 % (0-1); LYMPHOCYTES ABSOLUTE AUTO 1.42 K/mm3 (0.84-5.20); LYMPHOCYTES PERCENT AUTO 26 % (21-46); MONOCYTES ABSOLUTE AUTO 0.46 K/mm3 (0.16-1.47); MONOCYTES PERCENT AUTO 8 % (4-13); Mean Corpuscular HGB 24.9 pg (26.0-34.0); Mean Corpuscular HGB Conc 30.6 g/dL (31.5-36.5); Mean Corpuscular Volume 82 fL (80-100); Mean Platelet Volume 11.1 fL (9.1-12.4); NEUTROPHILS ABSOLUTE AUTO 3.43 K/mm3 (1.96-9.15); NEUTROPHILS PERCENT AUTO 63 % (41-73); Platelet Count 195 K/mm3 (150-400); RDW Coefficient Variation 15.2 % (11.7-14.2); RDW Standard Deviation 43.7 fL (35.1-46.3); Red Blood Cell Count 5.34 M/mm3 (4.30-5.90); White Blood Cell Count 5.48 K/mm3 (4.00-11.30)
[2020-02-03 13:20] LABS: Alanine Aminotransfer (ALT/SGP 36 U/L (12-78); Albumin, Blood 3.2 g/dL (3.4-5.0); Albumin/Globulin Ratio 0.9 (0.8-1.8); Alk Phos 94 U/L (50-136); Anion Gap 5 mmol/L (6-16); Aspartate Aminotrans (AST/SGOT 35 U/L (12-37); Bilirubin, Total 0.8 mg/dL (0.1-1.0); Blood Urea Nitrogen 21 mg/dL (8-24); Bun/Creatinine Ratio 17.8 (12.0-20.0); CO2, Blood 29 mmol/L (21-32); Chloride, Blood 103 mmol/L (98-108); Creatinine, Blood 1.18 mg/dL (0.60-1.20); Globulin, Blood 3.7 g/dL (2.2-4.0); Glomerular Filtration Rate >60 (60-); Glucose, Blood 113 mg/dL (70-99); Potassium, Blood 4.1 mmol/L (3.5-5.5); Sodium, Blood 137 mmol/L (136-145); Total Protein, Blood 6.9 g/dL (6.4-8.2); Troponin I 0.048 ng/mL (0.000-0.040)
== END 2020-02-03 13:46 | disposition left against medical advice (07) ==
LOC: ER 12:37
PROVIDERS: Emergency Medicine
DX: I11.0 Hypertensive heart disease with heart failure (principal); I50.9 Heart failure, unspecified; F19.10 Other psychoactive substance abuse, uncomplicated; G47.33 Obstructive sleep apnea (adult) (pediatric); F17.210 Nicotine dependence, cigarettes, uncomplicated; Z59.0 Homelessness; Z88.8 Allergy status to other drugs, medicaments and biological substances; Z79.899 Other long term (current) drug therapy
CPT/HCPCS: 36415; 71046; 80053; 83880; 84484; 85025; 93005; 93010; 96374; 99285-25; J1940

== ENCOUNTER 2020-02-04 10:55 | Emergency (ER) | payer OTHER ==
[~2020-02-04] VITALS: Ht 170.2 cm; Wt 86.2 kg
[2020-02-04 11:24] LABS: BASOPHILS ABSOLUTE AUTO 0.03 K/mm3 (0.00-0.23); BASOPHILS PERCENT AUTO 0 % (0-2); EOSINOPHILS ABSOLUTE AUTO 0.14 K/mm3 (0.00-0.68); EOSINOPHILS PERCENT AUTO 2 % (0-6); Hematocrit 43.7 % (37.0-53.0); Hemoglobin 13.5 g/dL (13.5-17.5); IMMATURE GRAN ABSOLUTE AUTO 0.01 K/mm3 (0.00-0.10); IMMATURE GRAN PERCENT AUTO 0 % (0-1); LYMPHOCYTES ABSOLUTE AUTO 1.17 K/mm3 (0.84-5.20); LYMPHOCYTES PERCENT AUTO 17 % (21-46); MONOCYTES ABSOLUTE AUTO 0.58 K/mm3 (0.16-1.47); MONOCYTES PERCENT AUTO 9 % (4-13); Mean Corpuscular HGB 24.5 pg (26.0-34.0); Mean Corpuscular HGB Conc 30.9 g/dL (31.5-36.5); Mean Corpuscular Volume 80 fL (80-100); Mean Platelet Volume 11.7 fL (9.1-12.4); NEUTROPHILS ABSOLUTE AUTO 4.86 K/mm3 (1.96-9.15); NEUTROPHILS PERCENT AUTO 72 % (41-73); Platelet Count 199 K/mm3 (150-400); RDW Coefficient Variation 15.2 % (11.7-14.2); White Blood Cell Count 6.79 K/mm3 (4.00-11.30)
[2020-02-04 11:45] LABS: Alanine Aminotransfer (ALT/SGP 39 U/L (12-78); Albumin, Blood 3.2 g/dL (3.4-5.0); Albumin/Globulin Ratio 0.8 (0.8-1.8); Alk Phos 101 U/L (50-136); Anion Gap 7 mmol/L (6-16); Aspartate Aminotrans (AST/SGOT 35 U/L (12-37); Bilirubin, Total 0.6 mg/dL (0.1-1.0); Blood Urea Nitrogen 21 mg/dL (8-24); Bun/Creatinine Ratio 20.2 (12.0-20.0); CO2, Blood 26 mmol/L (21-32); Calcium, Blood 8.6 mg/dL (8.5-10.1); Chloride, Blood 104 mmol/L (98-108); Creatinine, Blood 1.04 mg/dL (0.60-1.20); Globulin, Blood 3.8 g/dL (2.2-4.0); Glomerular Filtration Rate >60 (60-); Glucose, Blood 102 mg/dL (70-99); Sodium, Blood 137 mmol/L (136-145)
[2020-02-04 12:26] LABS: U Amphetamine Screen DETECTED; U Barbituate Screen Not Detected; U Benzodiazapine Screen Not Detected; U Cocaine Screen Not Detected; U Methadone Screen Not Detected; U Methamphetamine Screen DETECTED; U Opiates Screen DETECTED
[2020-02-04 12:27] LABS: U Buprenorphine Screen Not Detected; U Cannabinoids Screen Not Detected; U Oxycodone Screen Not Detected; U Phencyclidine Screen Not Detected; U Propoxyphene Screen Not Detected
== END 2020-02-04 16:33 | disposition home or self-care (01) ==
LOC: ER 10:55
PROVIDERS: Emergency Medicine
DX: I11.0 Hypertensive heart disease with heart failure (principal); I50.9 Heart failure, unspecified; G47.33 Obstructive sleep apnea (adult) (pediatric); Z88.8 Allergy status to other drugs, medicaments and biological substances; Z79.899 Other long term (current) drug therapy; F17.210 Nicotine dependence, cigarettes, uncomplicated
CPT/HCPCS: 36415; 71045; 80053; 83880; 84484; 85025; 93005; 93010; 96374; 96375; 96376; 99285-25; A9270; J1940; J2060

== ENCOUNTER 2020-02-20 00:35 | Emergency (ER) | payer OTHER ==
[~2020-02-20] VITALS: Ht 170.2 cm; Wt 93.9 kg
[2020-02-20 01:05] LABS: BASOPHILS ABSOLUTE AUTO 0.02 K/mm3 (0.00-0.23); BASOPHILS PERCENT AUTO 0 % (0-2); EOSINOPHILS ABSOLUTE AUTO 0.08 K/mm3 (0.00-0.68); EOSINOPHILS PERCENT AUTO 2 % (0-6); Hematocrit 45.3 % (37.0-53.0); Hemoglobin 13.8 g/dL (13.5-17.5); IMMATURE GRAN ABSOLUTE AUTO 0.02 K/mm3 (0.00-0.10); IMMATURE GRAN PERCENT AUTO 0 % (0-1); LYMPHOCYTES ABSOLUTE AUTO 0.65 K/mm3 (0.84-5.20); LYMPHOCYTES PERCENT AUTO 14 % (21-46); MONOCYTES ABSOLUTE AUTO 0.46 K/mm3 (0.16-1.47); MONOCYTES PERCENT AUTO 10 % (4-13); Mean Corpuscular HGB Conc 30.5 g/dL (31.5-36.5); Mean Corpuscular Volume 79 fL (80-100); Mean Platelet Volume 11.2 fL (9.1-12.4); NEUTROPHILS ABSOLUTE AUTO 3.57 K/mm3 (1.96-9.15); NEUTROPHILS PERCENT AUTO 74 % (41-73); Platelet Count 181 K/mm3 (150-400); RDW Coefficient Variation 15.6 % (11.7-14.2); RDW Standard Deviation 43.7 fL (35.1-46.3); Red Blood Cell Count 5.76 M/mm3 (4.30-5.90)
[2020-02-20 01:19] LABS: PCO2 Arterial 35.3 mmHg (35-45); PO2 Arterial 79.1 mmHg (80-100); pH Blood Arterial 7.45 (7.35-7.45)
[2020-02-20 01:25] LABS: Alanine Aminotransfer (ALT/SGP 33 U/L (12-78); Albumin, Blood 3.2 g/dL (3.4-5.0); Albumin/Globulin Ratio 0.7 (0.8-1.8); Alk Phos 103 U/L (50-136); Anion Gap 6 mmol/L (6-16); Aspartate Aminotrans (AST/SGOT 52 U/L (12-37); Bilirubin, Total 0.5 mg/dL (0.1-1.0); Blood Urea Nitrogen 21 mg/dL (8-24); CO2, Blood 27 mmol/L (21-32); Calcium, Blood 8.4 mg/dL (8.5-10.1); Chloride, Blood 100 mmol/L (98-108); Ethanol (Alcohol), Blood, Med <3 mg/dL; Globulin, Blood 4.7 g/dL (2.2-4.0); Glomerular Filtration Rate >60 (60-); Glucose, Blood 157 mg/dL (70-99); Magnesium, Blood 2.3 mg/dL (1.6-2.4); Salicylate <1.7 mg/dL (2.8-20.0); Sodium, Blood 133 mmol/L (136-145); Total Protein, Blood 7.9 g/dL (6.4-8.2); Troponin I 0.016 ng/mL (0.000-0.040)
[2020-02-20 01:44] LABS: Acetaminophen, Random <2.0 ug/mL (10.0-30.0)
== END 2020-02-20 03:45 | disposition left against medical advice (07) ==
LOC: ER 00:35
PROVIDERS: Emergency Medicine
DX: R07.9 Chest pain, unspecified (principal); R06.02 Shortness of breath; I11.0 Hypertensive heart disease with heart failure; I50.9 Heart failure, unspecified; F17.200 Nicotine dependence, unspecified, uncomplicated; Z88.8 Allergy status to other drugs, medicaments and biological substances; Z79.899 Other long term (current) drug therapy
CPT/HCPCS: 36600; 71045; 80053; 82803; 83735; 83880; 84484; 85025; 93005; 93010; 96374; 99284-25; G0480

== ENCOUNTER 2020-02-21 16:05 | Emergency (ER) | payer OTHER ==
[~2020-02-21] VITALS: Ht 170.2 cm; Wt 96.6 kg
[2020-02-21 17:47] LABS: BASOPHILS ABSOLUTE AUTO 0.03 K/mm3 (0.00-0.23); BASOPHILS PERCENT AUTO 1 % (0-2); EOSINOPHILS PERCENT AUTO 2 % (0-6); Hemoglobin 12.6 g/dL (13.5-17.5); Mean Corpuscular HGB 23.8 pg (26.0-34.0); Mean Corpuscular HGB Conc 30.7 g/dL (31.5-36.5); Mean Corpuscular Volume 77 fL (80-100); Mean Platelet Volume 11.4 fL (9.1-12.4); Platelet Count 192 K/mm3 (150-400); RDW Coefficient Variation 15.5 % (11.7-14.2); RDW Standard Deviation 42.9 fL (35.1-46.3); White Blood Cell Count 4.83 K/mm3 (4.00-11.30)
[2020-02-21 17:49] LABS: IMMATURE GRAN ABSOLUTE AUTO 0.02 K/mm3 (0.00-0.10); IMMATURE GRAN PERCENT AUTO 0 % (0-1); LYMPHOCYTES ABSOLUTE AUTO 1.39 K/mm3 (0.84-5.20); LYMPHOCYTES PERCENT AUTO 29 % (21-46); MONOCYTES ABSOLUTE AUTO 0.66 K/mm3 (0.16-1.47); MONOCYTES PERCENT AUTO 14 % (4-13); NEUTROPHILS ABSOLUTE AUTO 2.63 K/mm3 (1.96-9.15); NEUTROPHILS PERCENT AUTO 54 % (41-73)
[2020-02-21 18:26] LABS: CO2, Blood 31 mmol/L (21-32); Chloride, Blood 98 mmol/L (98-108); Potassium, Blood 3.3 mmol/L (3.5-5.5); Sodium, Blood 135 mmol/L (136-145)
[2020-02-21 18:27] LABS: Alanine Aminotransfer (ALT/SGP 28 U/L (12-78); Albumin, Blood 3.1 g/dL (3.4-5.0); Albumin/Globulin Ratio 0.7 (0.8-1.8); Alk Phos 103 U/L (50-136); Anion Gap 6 mmol/L (6-16); Aspartate Aminotrans (AST/SGOT 29 U/L (12-37); Bilirubin, Total 0.5 mg/dL (0.1-1.0); Blood Urea Nitrogen 18 mg/dL (8-24); Bun/Creatinine Ratio 18.9 (12.0-20.0); Calcium, Blood 8.3 mg/dL (8.5-10.1); Creatinine, Blood 0.95 mg/dL (0.60-1.20); Globulin, Blood 4.4 g/dL (2.2-4.0); Glomerular Filtration Rate >60 (60-); Glucose, Blood 102 mg/dL (70-99); Total Protein, Blood 7.5 g/dL (6.4-8.2); Troponin I 0.026 ng/mL (0.000-0.040)
== END 2020-02-21 21:15 | disposition home or self-care (01) ==
LOC: ER 16:05
PROVIDERS: Emergency Medicine
DX: I11.0 Hypertensive heart disease with heart failure (principal); I50.9 Heart failure, unspecified; R00.0 Tachycardia, unspecified; E87.6 Hypokalemia; R79.1 Abnormal coagulation profile; G47.33 Obstructive sleep apnea (adult) (pediatric); F17.200 Nicotine dependence, unspecified, uncomplicated; Z88.8 Allergy status to other drugs, medicaments and biological substances; Z99.89 Dependence on other enabling machines and devices; Z79.899 Other long term (current) drug therapy
CPT/HCPCS: 36415; 71046; 80053; 83880; 84484; 85025; 85379; 93005; 93010; 96374; 99284-25; J1940

== ENCOUNTER 2020-08-17 13:37 | Emergency (ER) | payer OTHER ==
[~2020-08-17] VITALS: Ht 170.2 cm; Wt 90.7 kg
[2020-08-17 14:15] LABS: BASOPHILS ABSOLUTE AUTO 0.03 K/mm3 (0.00-0.23); BASOPHILS PERCENT AUTO 1 % (0-2); EOSINOPHILS ABSOLUTE AUTO 0.13 K/mm3 (0.00-0.68); EOSINOPHILS PERCENT AUTO 2 % (0-6); Hematocrit 43.5 % (37.0-53.0); Hemoglobin 13.6 g/dL (13.5-17.5); IMMATURE GRAN ABSOLUTE AUTO 0.02 K/mm3 (0.00-0.10); IMMATURE GRAN PERCENT AUTO 0 % (0-1); LYMPHOCYTES ABSOLUTE AUTO 1.05 K/mm3 (0.84-5.20); LYMPHOCYTES PERCENT AUTO 17 % (21-46); MONOCYTES ABSOLUTE AUTO 0.44 K/mm3 (0.16-1.47); MONOCYTES PERCENT AUTO 7 % (4-13); Mean Corpuscular HGB 25.8 pg (26.0-34.0); Mean Corpuscular HGB Conc 31.3 g/dL (31.5-36.5); Mean Corpuscular Volume 82 fL (80-100); Mean Platelet Volume 12.5 fL (9.1-12.4); NEUTROPHILS ABSOLUTE AUTO 4.41 K/mm3 (1.96-9.15); NEUTROPHILS PERCENT AUTO 73 % (41-73); Platelet Count 165 K/mm3 (150-400); RDW Coefficient Variation 14.9 % (11.7-14.2); RDW Standard Deviation 44.1 fL (35.1-46.3); Red Blood Cell Count 5.28 M/mm3 (4.30-5.90); White Blood Cell Count 6.08 K/mm3 (4.00-11.30)
[2020-08-17 14:34] LABS: Alanine Aminotransfer (ALT/SGP 43 U/L (12-78); Albumin, Blood 3.4 g/dL (3.4-5.0); Albumin/Globulin Ratio 0.8 (0.8-1.8); Alk Phos 89 U/L (50-136); Anion Gap 8 mmol/L (6-16); Aspartate Aminotrans (AST/SGOT 29 U/L (12-37); Bilirubin, Total 0.6 mg/dL (0.1-1.0); Blood Urea Nitrogen 29 mg/dL (8-24); Bun/Creatinine Ratio 25.9 (12.0-20.0); CO2, Blood 28 mmol/L (21-32); Calcium, Blood 8.9 mg/dL (8.5-10.1); Chloride, Blood 102 mmol/L (98-108); Creatinine, Blood 1.12 mg/dL (0.60-1.20); Glomerular Filtration Rate >60 (60-); Glucose, Blood 142 mg/dL (70-99); Potassium, Blood 3.6 mmol/L (3.5-5.5); Sodium, Blood 138 mmol/L (136-145); Total Protein, Blood 7.4 g/dL (6.4-8.2); Troponin I 0.048 ng/mL (0.000-0.040)
[2020-08-17] MEDS ORDERED: FURO40 PO (15:44)
[2020-08-17] MEDS ORDERED: POTA10T (15:46)
[2020-08-17] MEDS ORDERED: Prinivil10 MG PO (15:46)
[2020-08-17] MEDS ORDERED: TOPROL XL50 MG PO (15:48)
[2020-08-17] MEDS ORDERED: ISOMON20 PO (15:49)
[2020-08-17] MEDS ORDERED: Ventolin/Prove6.7 GM INH (15:50)
== END 2020-08-17 16:56 | disposition home or self-care (01) ==
LOC: ER 13:37
PROVIDERS: Emergency Medicine
DX: I11.0 Hypertensive heart disease with heart failure (principal); I50.9 Heart failure, unspecified; F17.200 Nicotine dependence, unspecified, uncomplicated
CPT/HCPCS: 36415; 71046; 80053; 83880; 84484; 85025; 93005; 93010; 96374; 96375; 99284-25; J1885; J1940

== ENCOUNTER 2020-08-18 00:48 | Inpatient (IN) | payer OTHER ==
[~2020-08-18] VITALS: Ht 170.2 cm; Wt 97.8 kg
[~2020-08-18 00:48] MED LIST changes: +ISOMON20 PO; +POTA10T; +TOPROL XL50 MG PO; +Ventolin/Prove6.7 GM INH
[2020-08-18 05:29] LABS: U Amphetamine Screen DETECTED; U Barbituate Screen Not Detected; U Benzodiazapine Screen Not Detected; U Buprenorphine Screen Not Detected; U Cannabinoids Screen DETECTED; U Cocaine Screen Not Detected; U Methadone Screen Not Detected; U Methamphetamine Screen DETECTED; U Opiates Screen Not Detected; U Oxycodone Screen Not Detected; U Phencyclidine Screen Not Detected; U Propoxyphene Screen Not Detected
[2020-08-18 09:28] LABS: Ethanol (Alcohol), Blood, Med <3 mg/dL
--- NOTE | 2020-08-18 12:16 | NUR ---
echocardiogram completed
--- NOTE | 2020-08-18 12:20 | NUR ---
ASSUME CARE: PT ARRIVED IN THE UNIT VIA STRETCHER WAS ABLE TO TRANSFER INDEPENDENTLY INTO HOSPITAL BED. PT ALERT AND ORIENTED X4 IS HERE FOR ACUTE ON CHRONIC CHF. VITALS HRR SINUS TACH 110'S, BP SYSTOLIC 130'S, SATS ABOVE 95% ON RA, AFEBRILE. PT HAS SOME NOTICEABLE SOB WITH EXERTION, PT ON LASIX 40MG BID SWITCHED TO BUMEX PER DR CALDERA, PT AHD ABOUT 1L URINE OUT THIS MORNING. AWAITING FOR ECHO RESULT. PT IN BED RESTING TAKES FENTANYL 25MCG FOR ABD PAIN. ABLE TO MAKE NEEDS KNOWN. WILL MONITOR
--- NOTE | 2020-08-18 18:16 | NUR ---
PT SUMMARY: PT KEEPS C/O ABD PAIN PT WAS GIVEN IV FENTANYL Q4HRS, OFFERED WARM COMPRESS DOESNT SEEM TO HELP, WAS ALSO GIVEN SIMETHICONE TABS FOR GAS PAIN SINCE PT HAS BEEN PASSING FLATUS, WAS ALSO STARTED ON BUMEX 1MG, PT SEEMED TO CALM DOWN AT THIS TIME, PT IN BED RESTING. VITALS STABLE HRR SINUS 90'S, BP SYSTOLIC 130'S, SATS ABOVE 95% ON RA, AFEBRILE. DENIES CHEST PAIN/PRESSURE. NO ACUTE CHANGE, TROPONIN TRENDING DOWN, PENDING ECHO RESULT. ABLE TO MAKE NEEDS KNOWN, WILL MONITOR
--- NOTE | 2020-08-18 20:48 | NUR ---
I&O'S PATIENT STATING HE DOES NOT FEEL THAT THE BUMEX IS HELPING, HE IS STATING THAT THE LASIX DID NOT WORK EARLIER EITHER. PATIENT CONTINUES TO FREQUENTLY REQUEST LOTS OF PO FLUIDS TO DRINK, EVEN AFTER EDUCATION PROVIDED ON THE NEED TO DECREASE FLUID INTAKE. PATIENT REFUSING TO KEEP TRACK OF HIS VOIDS, EVEN AFTER EDUCTION PROVIDED MULTIPLE TIMES ON THE REASON FOR THE NEED TO KEEP TRACK OF I&O'S. PATIENT CONTINUES TO REFUSE TO USE THE URINAL, HE GOES INTO THE BATHROOM, SHUT THE DOOR AND FLUSH BEFORE STAFF ABLE TO ASSESS OUTPUT. PATIENT VERY ARGUMENTATIVE AND NOT RECEPTIVE TO EDUCATION. PATIENT VERY RESISTANT TO EDUCATION AND PATIENT CARE AT THIS TIME.
[2020-08-19 04:40] LABS: Anion Gap 4 mmol/L (6-16); Blood Urea Nitrogen 23 mg/dL (8-24); Bun/Creatinine Ratio 19.8 (12.0-20.0); CO2, Blood 31 mmol/L (21-32); Calcium, Blood 8.8 mg/dL (8.5-10.1); Chloride, Blood 102 mmol/L (98-108); Creatinine, Blood 1.16 mg/dL (0.60-1.20); Glomerular Filtration Rate >60 (60-); Glucose, Blood 109 mg/dL (70-99); Potassium, Blood 4.1 mmol/L (3.5-5.5); Sodium, Blood 137 mmol/L (136-145)
--- NOTE | 2020-08-19 06:43 | NUR ---
SHIFT SUMMARY PT ALERT AND ORIENTED. PT REPORTS PAIN T/O SHIFT. PAIN MEDICATIONS PER EMAR PROVIDED. PT INDEPENDENT WITHIN THE ROOM. PT AGGITATED AT TIMES. CPAP PROVIDED BY RESPIRATORY CARE. PT REFUSED. NASAL CANULA WORN AT 2 L OF OXYGEN. OXYGEN SATURATION MAINTAINED OVER 92%. PT REPORTS NO CP OR PRESSURE. HR STABLE. BP STABLE. WILL CONTINUE TO MONITOR UNTIL REPORT GIVEN TO DAYSHIFT RN.
--- NOTE | 2020-08-19 14:42 | NUR ---
RETURNED FROM CARTON WAXING MACHINE OPERATOR. TR BAND TO RIGHT RADIAL WRIST. CAP REFILL <3 SEC, RADIAL PULSE PALPBALE, MOVES ALL FIVE RIGHT FINGERS WITHOUT DIFFICULTY.
--- NOTE | 2020-08-19 16:20 | NUR ---
2ML AIR REMOVED FROM TR BAND TO RIGHT WRIST, NO VISIBLE BLEEDING, RADIAL PULSE PALPABLE, MOVES ALL FIVE FINGERS WITHOUT DIFFICULTY.
--- NOTE | 2020-08-19 16:55 | NUR ---
ADDITIONAL 2ML REMOVED FROM TR BAND, NO BLEEDING AT THIS TIME, WILL CONTINUE TO MONITOR.
--- NOTE | 2020-08-19 17:33 | NUR ---
12ML AIR REMOVED TOTAL FROM TR BAND. NO BLEEDING AT THIS TIME, RADIAL PULSE PALPABLE, CAP REFILL <3. WILL LEAVE BAND IN PLACE FOR ONE HOUR PER ORDERS AND CONTINUE TO MONITOR.
--- NOTE | 2020-08-19 17:45 | NUR ---
SHIFT SUMMARY A/A/OX4 THROUGHOUT SHIFT TODAY. VSS, 2L 02 VIA NC, FOOT AND LLE WOUND KERLEX AND NON ADHERANT. EVALUATED TODAY BY INFECTIOUS DISEASE, NPO AFTER MIDNIGHT FOR KIRT IN AM. 1 PERSON ASSIST WITH AMBULATION, ALVARENGA REMAINS IN PLACE DRAINING CLEAR YELLOW URINE. LEFT UPPER ARM DVT FROM PREVIOUS PICC REMAINS SLIGHTLY SWOLLEN, NO REDNESS OR WARMTH TO AREA. WILL CONTINUE TO MONITOR AND TREAT UNTIL CHANGE OF SHIFT.
--- NOTE | 2020-08-19 17:48 | NUR ---
SHIFT SUMMARY; A/A/OX4 THROUGHOUT SHIFT. VSS, TAKEN TO SODA ROOM OPERATOR FOR ANGIO. RIGHT RADIAL SITE. TR BAND AND ARM BOARD IN PLACE. NO ACTIVE BLEEDING. 02 USED AT 2L FOR COMFORT DURING SHIFT, SATS REMAINED ABOVE 94% BUT PT REPORTS IT MAKING HIM FEEL BETTER. WILL CONTINUE TO TREAT AND MONITOR UNTIL CHANGE OF SHIFT.
[2020-08-19 18:46] LABS: Magnesium, Blood 2.4 mg/dL (1.6-2.4); Potassium, Blood 3.8 mmol/L (3.5-5.5)
--- NOTE | 2020-08-19 20:50 | NUR ---
194 PT SITTING UP HIGH FOWLERS POSITION WHILE WEARING O2 AT 1L/M PER NASAL CANNULA; PT TALKING CALM, ORGANIZED THOUGHT PROCESS MANNER; PT RIGHT WRIST TEGADERM INTACT OVER PUNCTURE SITE THAT IS NON BLEEDING WITH ARM BOARD INTACT; PT ADVISED WHEN NEXT DOSAGE OF FENTANYL IS DUE AT 2129 WITH ACKNOWLEDGEMENT NOTED.
--- NOTE | 2020-08-20 04:09 | NUR ---
SHIFT SUMMARY: 40 Y/O OBESE MALE HAD VERY RESTLESS NIGHT ALL SHIFT WITH NUMEROUS BEHAVIOR ISSUES TO INCLUDE PT YELLING AND CUSSING AT STAFF; THIS NURSE ENDED UP BEING PRIMARY PERSON TO ENTER ROOM FOR ALL CARE THIS SHIFT PATIENT SEEMED TO RESPOND BETTER WITH JUST SINGLE POINT OF CONTACT FOR INTERACTIONS; PT RIGHT WRIST PUNCTURE SITE WELL APPROXIMATED AND COVERED WITH OPSITE AND WRIST SPLINT INTACT; PT C/O PAIN RIGHT WRIST RATED 8/10 WITH FENTANYL 25MCG IVP GIVEN Q4H AND TYLENOL 650MG PO GIVEN TWICE WITH ADEQUATE RELIEF NOTED; SEE PREVIOUS NURSING NOTES THIS SHIFT; PT POSSIBLE DISCHARGE HOME TODAY; TELEMETRY REFLECTS NSR WITH HEART RATE 92 PER PEDRO--ARCHEOLOGY PROFESSOR; BED LOW POSITION WITH CALL LIGHT AT SIDE.
[2020-08-20 04:10] LABS: Bun/Creatinine Ratio 19.9 (12.0-20.0); Calcium, Blood 8.6 mg/dL (8.5-10.1); Creatinine, Blood 1.46 mg/dL (0.60-1.20); Magnesium, Blood 2.3 mg/dL (1.6-2.4); Potassium, Blood 4.5 mmol/L (3.5-5.5)
--- NOTE | 2020-08-20 10:24 | NUR ---
AMA DISCHARGE PT REQUESTING IV PAIN MEDICATIONS, PLANS FOR DISCHARGE TODAY; CLARIFIED ORDERS WITH DR CALDERA; NEW ORDERS TO D/C FENTANYL AND TO ADMINISTER TYLENOL. PT NOTIFIED IV PAIN MEDICATIONS NO LONGER AVAILABLE AND TYLENOL IS AVAIALBE; PT BECAME AGGITATED AND STARTED YELLING THAT THE OTHER MEDS SHOULD BE AVAILABLE; WHEN THIS RN COMFIRMED THAT THEY WERE NO LONGER AVAIALBLE PT STATES THAT HE WANTS TO LEAVE. "IM NOT WAITING FOR THE DOCTOR; JUST DISCHARGE ME." PT NOTIFIED THAT WE WOULD NEED TO WAIT FOR THE DR TO ROUND AND FOR DISCAHRGE ORDERS, PT STATES "IM NOT WAITING." PT EDUCATED ON RISKS OF LEAVING AMA INCLUDE , HEART ATTACK OR STROKE. PT CONTINUES TO NOT WANT TO WAIT FOR DR. DR CALDERA NOTITE. PLANS TO ORDER MEDICATIONS FOR HOME; PT NOTIIFED AND REQUESTS [facility]. PT LEFT ROOM VIA WHEELCHAIR AT 1018 AMA.
[2020-08-20] MEDS ORDERED: PANT40 PO (11:01)
[2020-08-20] MEDS ORDERED: SPIR25 PO (11:01)
[2020-08-20] MEDS ORDERED: ASPI81CH PO (11:01)
[2020-08-20] MEDS ORDERED: CLOP75 PO (11:01)
[2020-08-20] MEDS ORDERED: TORSE20 PO (11:02)
== END 2020-08-20 10:23 | disposition left against medical advice (07) | DRG 287 ==
LOC: ER 00:48 → PCU 05:46 → ERHOLD 05:46 → PCU 08:33
PROVIDERS: Emergency Medicine; Internal Medicine; Internal Medicine Cardiovascular Disease; ADMIT Family Medicine
PROC: 4A023N7 Measurement of Cardiac Sampling and Pressure, Left Heart, Percutaneous Approach (ICD-10-PCS; principal; 2020-08-19)
PROC: B2111ZZ Fluoroscopy of Multiple Coronary Arteries using Low Osmolar Contrast (ICD-10-PCS; 2020-08-19)
DX: I11.0 Hypertensive heart disease with heart failure (principal); I24.8 Other forms of acute ischemic heart disease; I50.23 Acute on chronic systolic (congestive) heart failure; G47.33 Obstructive sleep apnea (adult) (pediatric); F17.210 Nicotine dependence, cigarettes, uncomplicated; E78.5 Hyperlipidemia, unspecified; F15.10 Other stimulant abuse, uncomplicated; I42.7 Cardiomyopathy due to drug and external agent
CPT/HCPCS: 36415; 76705; 80048; 83690; 83735; 84132; 84484; 85347; 93005; 93010; 93306; 93458; 93571; 94660; 94762; 96374; 99152; 99153; 99285-25; A9270; A9270-GY; C1769; C1887; C1894; G0480; J1644; J1650; J1940; J2250; J3010; J7030; J7050; Q9967

== ENCOUNTER 2020-09-05 20:38 | Inpatient (IN) | payer OTHER ==
[~2020-09-05] VITALS: Ht 170.2 cm; Wt 92.8 kg
[~2020-09-05 20:38] MED LIST changes: +TORSE20 PO; -Ventolin/Prove6.7 GM INH
[2020-09-05] MEDS ORDERED: POTA10T PO (20:46)
[2020-09-05] MEDS ORDERED: IBUP800 PO (20:47)
[2020-09-05 21:23] LABS: BASOPHILS ABSOLUTE AUTO 0.04 K/mm3 (0.00-0.23); BASOPHILS PERCENT AUTO 1 % (0-2); EOSINOPHILS ABSOLUTE AUTO 0.04 K/mm3 (0.00-0.68); EOSINOPHILS PERCENT AUTO 1 % (0-6); Hematocrit 40.5 % (37.0-53.0); Hemoglobin 12.7 g/dL (13.5-17.5); IMMATURE GRAN ABSOLUTE AUTO 0.03 K/mm3 (0.00-0.10); IMMATURE GRAN PERCENT AUTO 0 % (0-1); LYMPHOCYTES ABSOLUTE AUTO 1.18 K/mm3 (0.84-5.20); LYMPHOCYTES PERCENT AUTO 15 % (21-46); MONOCYTES PERCENT AUTO 10 % (4-13); Mean Corpuscular HGB 24.8 pg (26.0-34.0); Mean Corpuscular HGB Conc 31.4 g/dL (31.5-36.5); Mean Corpuscular Volume 79 fL (80-100); NEUTROPHILS ABSOLUTE AUTO 5.58 K/mm3 (1.96-9.15); NEUTROPHILS PERCENT AUTO 73 % (41-73); Platelet Count 182 K/mm3 (150-400); RDW Coefficient Variation 15.4 % (11.7-14.2); RDW Standard Deviation 43.1 fL (35.1-46.3); Red Blood Cell Count 5.12 M/mm3 (4.30-5.90); White Blood Cell Count 7.67 K/mm3 (4.00-11.30)
[2020-09-05 21:37] LABS: Alanine Aminotransfer (ALT/SGP 437 U/L (12-78); Albumin, Blood 3.5 g/dL (3.4-5.0); Albumin/Globulin Ratio 0.9 (0.8-1.8); Alk Phos 144 U/L (50-136); Anion Gap 10 mmol/L (6-16); Aspartate Aminotrans (AST/SGOT 352 U/L (12-37); Bilirubin, Total 1.9 mg/dL (0.1-1.0); Blood Urea Nitrogen 26 mg/dL (8-24); Bun/Creatinine Ratio 21.8 (12.0-20.0); CO2, Blood 25 mmol/L (21-32); Calcium, Blood 8.4 mg/dL (8.5-10.1); Chloride, Blood 99 mmol/L (98-108); Creatinine, Blood 1.19 mg/dL (0.60-1.20); Globulin, Blood 3.9 g/dL (2.2-4.0); Glomerular Filtration Rate >60 (60-); Glucose, Blood 166 mg/dL (70-99); Potassium, Blood 3.5 mmol/L (3.5-5.5); Sodium, Blood 134 mmol/L (136-145); Total Protein, Blood 7.4 g/dL (6.4-8.2); Troponin I 0.053 ng/mL (0.000-0.040)
[2020-09-06 00:46] LABS: Adenovirus Not Detected (NOT DETECT); Bordetella pertussis Not Detected (NOT DETECT); Chlamydophila pneumoniae Not Detected (NOT DETECT); Coronavirus 229E Not Detected (NOT DETECT); Coronavirus HKU1 Not Detected (NOT DETECT); Coronavirus NL63 Not Detected (NOT DETECT); Coronavirus OC43 Not Detected (NOT DETECT); Human Metapneumovirus Not Detected (NOT DETECT); Human Rhinovirus/Enterovirus Detected (NOT DETECT); Influenza A/2009-H1 Not Detected (NOT DETECT); Influenza A/H1 Not Detected (NOT DETECT); Influenza A/H3 Not Detected (NOT DETECT); Influenza B Not Detected (NOT DETECT); Mycoplasma pneumoniae Not Detected (NOT DETECT); Parainfluenza Virus 1 Not Detected (NOT DETECT); Parainfluenza Virus 2 Not Detected (NOT DETECT); Parainfluenza Virus 3 Not Detected (NOT DETECT); Parainfluenza Virus 4 Not Detected (NOT DETECT); Respiratory Syncytial Virus Not Detected (NOT DETECT); SARS-Cov-2 (COVID-19), BioFire Not Detected (NOT DETECT)
[2020-09-06 02:42] LABS: International Normalized Ratio 1.39; Prothrombin Time Results 14.6 Sec (9.7-11.5)
[2020-09-06 05:03] LABS: BASOPHILS ABSOLUTE AUTO 0.03 K/mm3 (0.00-0.23); BASOPHILS PERCENT AUTO 0 % (0-2); EOSINOPHILS ABSOLUTE AUTO 0.06 K/mm3 (0.00-0.68); EOSINOPHILS PERCENT AUTO 1 % (0-6); Hematocrit 42.1 % (37.0-53.0); Hemoglobin 12.9 g/dL (13.5-17.5); IMMATURE GRAN ABSOLUTE AUTO 0.02 K/mm3 (0.00-0.10); IMMATURE GRAN PERCENT AUTO 0 % (0-1); LYMPHOCYTES ABSOLUTE AUTO 1.55 K/mm3 (0.84-5.20); LYMPHOCYTES PERCENT AUTO 21 % (21-46); MONOCYTES ABSOLUTE AUTO 0.91 K/mm3 (0.16-1.47); MONOCYTES PERCENT AUTO 13 % (4-13); Mean Corpuscular HGB 24.4 pg (26.0-34.0); Mean Corpuscular HGB Conc 30.6 g/dL (31.5-36.5); Mean Corpuscular Volume 80 fL (80-100); Mean Platelet Volume 12.5 fL (9.1-12.4); NEUTROPHILS ABSOLUTE AUTO 4.67 K/mm3 (1.96-9.15); NEUTROPHILS PERCENT AUTO 65 % (41-73); Platelet Count 192 K/mm3 (150-400); RDW Coefficient Variation 15.6 % (11.7-14.2); RDW Standard Deviation 44.3 fL (35.1-46.3); Red Blood Cell Count 5.29 M/mm3 (4.30-5.90); White Blood Cell Count 7.24 K/mm3 (4.00-11.30)
[2020-09-06 05:22] LABS: Troponin I 0.047 ng/mL (0.000-0.040)
[2020-09-06 05:24] LABS: Alanine Aminotransfer (ALT/SGP 461 U/L (12-78); Albumin, Blood 3.5 g/dL (3.4-5.0); Albumin/Globulin Ratio 0.9 (0.8-1.8); Alk Phos 146 U/L (50-136); Anion Gap 9 mmol/L (6-16); Aspartate Aminotrans (AST/SGOT 323 U/L (12-37); Bilirubin, Total 2.1 mg/dL (0.1-1.0); Blood Urea Nitrogen 26 mg/dL (8-24); Bun/Creatinine Ratio 22.4 (12.0-20.0); CO2, Blood 26 mmol/L (21-32); Calcium, Blood 8.6 mg/dL (8.5-10.1); Chloride, Blood 99 mmol/L (98-108); Creatinine, Blood 1.16 mg/dL (0.60-1.20); Globulin, Blood 3.9 g/dL (2.2-4.0); Glomerular Filtration Rate >60 (60-); Glucose, Blood 95 mg/dL (70-99); Potassium, Blood 3.6 mmol/L (3.5-5.5); Sodium, Blood 134 mmol/L (136-145); Total Protein, Blood 7.4 g/dL (6.4-8.2)
[2020-09-06 05:37] LABS: Creatine Kinase MB 10.7 ng/mL (0.0-3.6); Creatine Kinase MB Index 1.7 (0.0-4.0)
--- NOTE | 2020-09-06 07:45 | NUR ---
ADMIT NOTE/SHIFT SUMMARY PATIENT ADMITTED EARLIER THIS SHIFT. PATIENT VERY FIDGETY UPON ADMIT. PATIENT SETTLED IN AND ORIENTED TO THE ROOM, UNIT, AND CALL LIGHT. PATIENT CONTINUED TO BE VERY FIDGETY AND PICKED AT THINGS FREQUENTLY THROUGHOUT THE NIGHT. PATIENT TOSSED AND TURNED FREQUENTLY IN THE BED AND WAS VERY AGITATED WHEN AWAKE. PATIENT DROWSY AT TIMES AND WOULD FALL ASLEEP IN THE MIDDLE OF A CONVERSATION, HOWEVER, PATIENT EASILY AWAKENS TO VERBAL STIMULI. PATIENT VERY IMPULSIVE WHEN AWAKE. BED ALARM ON FOR SAFETY. PATIENT MEDICATED FOR AGITATION THROUGHOUT THE NIGHT CHARTED. VITAL SIGNS CHARTED. REPORT GIVEN TO ONCOMING RN.
--- NOTE | 2020-09-06 08:01 | NUR ---
ASSESSMENT- PT ASLEEP, AWAKENS EASILY TO NAME, COOPERATIVE, ABLE TO ANSWER QUESTIONS. COUGH PRODUCTIVE OF THICK WHITE SECRETIONS. LUNGS CLEAR, DENIES SOB. REPOSITIONING SELF IN BED. HAD C/O PAIN EARLIER-RX WITH FENTANYL WITH IMPROVEMENT-ASLEEP WHEN UNDISTURBED. NO C/O ANXIETY. DR. CALLEJAS HERE-SEE ORDERS. PIV INTACT. BED ALARM ON. TAKING SCANT ICE CHIPS PER DR. CALLEJAS
--- NOTE | 2020-09-06 10:29 | NUR ---
PT AGITATED, RESTLESS IN BED. EXPLAINED PLAN OF CARE. C/O THROAT DISCOMFORT, STATES FEELS "SOMETHING IS GROWING IN THERE". TONSILS SWOLLEN, PRODUCTIVE COUGH. RX WITH ATIVAN.
--- NOTE | 2020-09-06 11:01 | NUR ---
PT CONTINUES TO BE AGITATED, MOVING RESTLESSLY IN BED, SITTING UP, C/O NOT BEING ABLE TO EAT, DRINK. GIVEN ICE, EXPLAINED PLAN OF CARE. UPDATE TO DR. VOGEL. RX WITH ADDITIONAL DOSE ATIVAN WITH IMPROVEMENT, RESTING NOW. VS STABLE. CONTINUOUS SATURATIONS MONITOR ON
--- NOTE | 2020-09-06 12:00 | NUR ---
PT IMPULSIVE, UP OUT OF BED TO VOID. ASSISTED BACK TO BED. BACK TO SLEEP QUICKLY.
--- NOTE | 2020-09-06 12:24 | NUR ---
REPORT CALLED TO MAXIMO POLLARD. PT READIED FOR TRANSFER
--- NOTE | 2020-09-06 12:54 | NUR ---
PT ARRIVED TO UNIT FROM PCU. SLEEPING OFF AND ON. WAKES UP BRIEFLY AND THEN RETURNS TO SLEEP. PROVIDED ICE CHIPS PER PT REQUEST. BED ALARM ON. TELE SINUS TACH AT 115.
--- NOTE | 2020-09-06 13:01 | NUR ---
PT SET OFF BED ALARM STATED WANTED TO GO FOR WALK BUT WAS VERY GROGGY AND UNSTEADY ON FEET. ASSISTED BACK TO BED. NOW RESTING ON SIDE W/EYES CLOSED. BED ALARM ON.
[2020-09-06 13:20] LABS: Troponin I 0.042 ng/mL (0.000-0.040)
[2020-09-06 13:34] LABS: Creatine Kinase MB 9.2 ng/mL (0.0-3.6); Creatine Kinase MB Index 1.8 (0.0-4.0)
--- NOTE | 2020-09-06 16:25 | NUR ---
PT TO [facility] SCAN
--- NOTE | 2020-09-06 17:23 | NUR ---
PT BACK TO ROOM FROM [facility] SCAN AWAKE AND ALERT. WENT IN BATHROOM, VOIDED AND WAS DRINKING FROM SINK. OBTAINED ORDERS FOR CLEAR LIQUIDS. PROVIDED APPLE JUICE AND KELLY MIST PER PT REQUEST. PT HAS PRODUCTIVE COUGH. VISITOR AT BEDSIDE.
--- NOTE | 2020-09-06 17:37 | NUR ---
PT CALLED FOR MORE FLUIDS. ADVISED TO SLOW DOWN SO DOES NOT CAUSE ABDOMINAL DISCOMFORT/NAUSEA. PT ASKED WHEN HIS DINNER TRAY WOULD ARRIVE, STATING HE WAS "STARVING" BECAUSE HE HADN'T EATEN ALL DAY. SITTING ON EDGE OF BED USING PHONE.
--- NOTE | 2020-09-06 18:17 | NUR ---
PT HAD EMESIS IN GARBAGE CAN. STATED "IT JUST CAME UP". MEDICATED PER ORDERS FOR NAUSEA AND 08/10 PAIN. NOW SLEEPING W/S.O. IN BED.
--- NOTE | 2020-09-06 19:06 | NUR ---
PT FALL HEARD PT VOMITING, ENTERED ROOM TO SEE PT HAD VOMITED ACROSS FLOOR. S.O. WAS AT BEDSIDE. RETRIEVED TOWELS TO CLEAN UP VOMIT, SAW MOVEMENT OUT OF CORNER OF EYE AND HEARD THUD. QUICKLY ENTERED ROOM TO FIND PT TRYING TO SIT UP ON FLOOR, TANGLED IN BLANKETS. NOTED PT HAD BLOODY NOSE AND SWELLING AND BRUISING WITH SLIGHT BLEEDING TO CENTER OF BROWLINE. ICE APPLIED TO FOREHEAD APPROXIMATELY THREE INCHES WIDE BY ONE INCH TALL. ASSISTED TO BED, OBTAINED VS AND CALLED RAPID RESPONSE. PT DROWSY BUT ANSWERS QUESTIONS APPROPRIATELY. SPOKE TO LINNEA MCKEON, ORDERS OBTAINED FOR STAT HEAD CT. CT COMPLETED AND PT BACK TO ROOM. PT SLEEPING BUT AROUSABLE. ICE APPLIED TO NECK FOR COMFORT. BED ALARM ON. CALL LIGHT IN REACH.
--- NOTE | 2020-09-06 19:55 | NUR ---
PT COMPLAINING OF ACUTE PAIN WHICH HE RATES 8/10. NO DIMINISHED LUNG SOUNDS, PT STATES ACUTELY TENDER TO LIGHT TOUCH. NO CREPITUS NOTED. EQUINE BREEDER PHYSICIAN NOTIFIED. ORDER FOR CHEST X-RAY OBTAINED.
--- NOTE | 2020-09-06 21:03 | NUR ---
PT TO RADIOLOGY FOR CHEST X-RAY
--- NOTE | 2020-09-07 06:17 | NUR ---
SHIFT SUMMARY: MISTI AROUSES TO TOUCH. HE HAS SLURRED SPEECH AND BECOMES AGITATED WITH QUESTIONS. HE DOES NOT REMEMBER HIS NPO STATUS OR WHY THE DOCTOR HAS ORDERED IT. HE CONTACTED A FRIEND AND ASKED THEM TO BRING HIM FOOD, TELLING THEM THAT HE HAD ALREADY UNDERGONE SURGERY. HE HAS ATTEMPTED TO DRINK FROM THE SINK WHILE USING THE BATHROOM. HE DID EXPERIENCE A FALL YESTERDAY FOR WHICH A HEAD CT AND CHEST X-RAY WERE OBTAINED. HE HAS NOT VOMITED THIS SHIFT. HE HAS RECIEVED ATIVAN FOR AGITATION AND FENTANYL FOR PAIN. HE USES HIS CALL LIGHT OCCASSIONALLY. TELE IN PLACE. HE IS LYING IN BED WITH HIS CALL LIGHT IN REACH. WILL REPORT TO DAY SHIFT RN.
[2020-09-07 07:46] LABS: BASOPHILS ABSOLUTE AUTO 0.02 K/mm3 (0.00-0.23); BASOPHILS PERCENT AUTO 0 % (0-2); EOSINOPHILS ABSOLUTE AUTO 0.12 K/mm3 (0.00-0.68); EOSINOPHILS PERCENT AUTO 2 % (0-6); Hematocrit 45.6 % (37.0-53.0); Hemoglobin 14.2 g/dL (13.5-17.5); IMMATURE GRAN ABSOLUTE AUTO 0.01 K/mm3 (0.00-0.10); IMMATURE GRAN PERCENT AUTO 0 % (0-1); LYMPHOCYTES ABSOLUTE AUTO 1.14 K/mm3 (0.84-5.20); LYMPHOCYTES PERCENT AUTO 15 % (21-46); MONOCYTES ABSOLUTE AUTO 0.87 K/mm3 (0.16-1.47); MONOCYTES PERCENT AUTO 11 % (4-13); Mean Corpuscular HGB 25.2 pg (26.0-34.0); Mean Corpuscular HGB Conc 31.1 g/dL (31.5-36.5); Mean Corpuscular Volume 81 fL (80-100); Mean Platelet Volume 11.5 fL (9.1-12.4); NEUTROPHILS PERCENT AUTO 73 % (41-73); Platelet Count 200 K/mm3 (150-400); RDW Coefficient Variation 16.3 % (11.7-14.2); RDW Standard Deviation 46.3 fL (35.1-46.3); Red Blood Cell Count 5.63 M/mm3 (4.30-5.90); White Blood Cell Count 7.86 K/mm3 (4.00-11.30)
--- NOTE | 2020-09-07 07:59 | NUR ---
AGGITATION AT APROX 0740 PT BEGAN LOUDLY YELLING OUT FROM ROOM. THIS RN ALONG WITH PRIMARY RN TO ROOM. PT YELLING/CUSSING AT STAFF, NURSING SEARCH DEVELOPER CALLED SECURITY WHO ARRIVED BUT WERE NOT NEEDED TO ASSIST IN ROOM AT THAT TIME. PT STATES HE IS "TIRED OF ALL OF THIS" PT MEDICATED WITH 1MG ATIVAN IVP. PT EDUCATED ON OUR ZERO TOLERANCE FOR VIOLENCE POLICY.
[2020-09-07 08:04] LABS: Alanine Aminotransfer (ALT/SGP 459 U/L (12-78); Albumin, Blood 3.3 g/dL (3.4-5.0); Albumin/Globulin Ratio 0.8 (0.8-1.8); Alk Phos 134 U/L (50-136); Anion Gap 7 mmol/L (6-16); Aspartate Aminotrans (AST/SGOT 227 U/L (12-37); Bilirubin, Total 1.6 mg/dL (0.1-1.0); Blood Urea Nitrogen 23 mg/dL (8-24); Bun/Creatinine Ratio 19.8 (12.0-20.0); CO2, Blood 33 mmol/L (21-32); Calcium, Blood 8.5 mg/dL (8.5-10.1); Chloride, Blood 99 mmol/L (98-108); Creatinine, Blood 1.16 mg/dL (0.60-1.20); Globulin, Blood 4.1 g/dL (2.2-4.0); Glomerular Filtration Rate >60 (60-); Glucose, Blood 91 mg/dL (70-99); Potassium, Blood 3.7 mmol/L (3.5-5.5); Sodium, Blood 139 mmol/L (136-145); Total Protein, Blood 7.4 g/dL (6.4-8.2)
[2020-09-07] MEDS ORDERED: ONDA4ODT MM (14:08)
[2020-09-07] MEDS ORDERED: Percocet 5-3251 EACH PO (14:19)
--- NOTE | 2020-09-07 15:47 | NUR ---
DISCHARGE SUMMARY PT A&OX4, WALKED OFF FLOOR, DECLINED WC OUT, REVIEWED DISCHARGED INSTRUCTIONS W/PT, EVEN THOUGHT PT DECLINED TO PAY ATTENTION, SHOWED HIM HIS MEDICATION LIST, ADVISED HIM THAT ZOFRAN WAS FAXED TO [facility] AND SCRIPT FOR PAIN MED IN FOLDER THAT NEEDS TO BE TAKEN TO A PHARMACY TO BE FILLED. PT DECLINED TO CALL FOR A RIDE. I ENCOURAGED PT TO CALL HIS AUNT, GIRLFRIEND, ANYONE ELSE - PT DECLINED TO CALL ANYONE FOR A RIDE - PT DECLINED. IV DC'D. BEFORE PT LEFT THE ROOM HE THREW ALL HIS DRINKS, CLOTHES, TELE BOX ON THE FLOOR - GENERALLY TRASHED THE ROOM, CALLED ME A COUPLE OF NAMES AND WALKED OFF THE FLOOR.
== END 2020-09-07 15:44 | disposition home or self-care (01) | DRG 445 ==
LOC: ER 20:38 → PCU 20:39 → SURS 20:39 → PCU 20:39 → SURS 09-06 12:30
PROVIDERS: Emergency Medicine; Surgery; ADMIT Internal Medicine
DX: K81.0 Acute cholecystitis (principal); I50.22 Chronic systolic (congestive) heart failure; I42.7 Cardiomyopathy due to drug and external agent; Z20.828 Contact with and (suspected) exposure to other viral communicable diseases; I49.3 Ventricular premature depolarization; F17.210 Nicotine dependence, cigarettes, uncomplicated; G47.33 Obstructive sleep apnea (adult) (pediatric); Z79.82 Long term (current) use of aspirin
CPT/HCPCS: 0202U; 36415; 70450; 71045; 71046; 74177; 76705; 78226; 80053; 82550; 82553; 83690; 83880; 84145; 84484; 85025; 85610; 93005; 93010; 94640; 94760; 96365; 96367; 96372; 96375; 96376; 99285-25; A9270-GY; A9537; G0378; J0696; J1650; J1885; J2060; J2405; J3010; Q9967

== ENCOUNTER 2020-09-11 09:34 | Inpatient (IN) | payer OTHER ==
[~2020-09-11] VITALS: Ht 170.2 cm; Wt 90.7 kg
[~2020-09-11 09:34] MED LIST changes: +POTA10T PO
[2020-09-11 10:14] LABS: BASOPHILS ABSOLUTE AUTO 0.07 K/mm3 (0.00-0.23); BASOPHILS PERCENT AUTO 1 % (0-2); EOSINOPHILS ABSOLUTE AUTO 0.33 K/mm3 (0.00-0.68); EOSINOPHILS PERCENT AUTO 4 % (0-6); Hematocrit 50.2 % (37.0-53.0); Hemoglobin 15.2 g/dL (13.5-17.5); IMMATURE GRAN ABSOLUTE AUTO 0.02 K/mm3 (0.00-0.10); IMMATURE GRAN PERCENT AUTO 0 % (0-1); LYMPHOCYTES ABSOLUTE AUTO 1.53 K/mm3 (0.84-5.20); LYMPHOCYTES PERCENT AUTO 17 % (21-46); MONOCYTES ABSOLUTE AUTO 0.64 K/mm3 (0.16-1.47); MONOCYTES PERCENT AUTO 7 % (4-13); Mean Corpuscular HGB 24.6 pg (26.0-34.0); Mean Corpuscular HGB Conc 30.3 g/dL (31.5-36.5); Mean Corpuscular Volume 81 fL (80-100); Mean Platelet Volume 10.9 fL (9.1-12.4); NEUTROPHILS ABSOLUTE AUTO 6.63 K/mm3 (1.96-9.15); NEUTROPHILS PERCENT AUTO 72 % (41-73); Platelet Count 230 K/mm3 (150-400); RDW Coefficient Variation 17.3 % (11.7-14.2); RDW Standard Deviation 46.4 fL (35.1-46.3); Red Blood Cell Count 6.19 M/mm3 (4.30-5.90); White Blood Cell Count 9.22 K/mm3 (4.00-11.30)
[2020-09-11 10:33] LABS: Alanine Aminotransfer (ALT/SGP 227 U/L (12-78); Albumin, Blood 3.3 g/dL (3.4-5.0); Albumin/Globulin Ratio 0.7 (0.8-1.8); Alk Phos 117 U/L (50-136); Anion Gap 3 mmol/L (6-16); Aspartate Aminotrans (AST/SGOT 48 U/L (12-37); Bilirubin, Total 0.6 mg/dL (0.1-1.0); Blood Urea Nitrogen 16 mg/dL (8-24); Bun/Creatinine Ratio 16.3 (12.0-20.0); CO2, Blood 31 mmol/L (21-32); Calcium, Blood 9.6 mg/dL (8.5-10.1); Chloride, Blood 104 mmol/L (98-108); Creatinine, Blood 0.98 mg/dL (0.60-1.20); Globulin, Blood 4.8 g/dL (2.2-4.0); Glomerular Filtration Rate >60 (60-); Glucose, Blood 98 mg/dL (70-99); Magnesium, Blood 1.9 mg/dL (1.6-2.4); Potassium, Blood 4.6 mmol/L (3.5-5.5); Sodium, Blood 138 mmol/L (136-145); Total Protein, Blood 8.1 g/dL (6.4-8.2); Troponin I 0.046 ng/mL (0.000-0.040)
[2020-09-11] MEDS ORDERED: Prinivil10 MG PO (15:35)
[2020-09-11] MEDS ORDERED: ONDA4ODT MM (15:35)
[2020-09-11] MEDS ORDERED: Aspir 8181 MG PO (15:36)
[2020-09-11] MEDS ORDERED: Ventolin/Prove6.7 GM INH (15:36)
[2020-09-11] MEDS ORDERED: PANT40 PO (15:37)
[2020-09-11] MEDS ORDERED: SPIR25 PO (15:37)
[2020-09-11] MEDS ORDERED: CLOP75 PO (15:37)
[2020-09-11] MEDS ORDERED: FURO40 PO (15:38)
[2020-09-11] MEDS ORDERED: Cyclobenzaprine10 MG PO (15:40)
[2020-09-11] MEDS ORDERED: Isosorbide Dini30 MG PO (15:40)
[2020-09-11] MEDS ORDERED: ATOR80 PO (15:41)
[2020-09-11] MEDS ORDERED: Vitamin D2000 UNIT PO (15:41)
[2020-09-11 17:06] LABS: U Amphetamine Screen Not Detected; U Barbituate Screen Not Detected; U Benzodiazapine Screen Not Detected; U Buprenorphine Screen Not Detected; U Cannabinoids Screen Not Detected; U Cocaine Screen Not Detected; U Methadone Screen Not Detected; U Methamphetamine Screen Not Detected; U Opiates Screen DETECTED; U Oxycodone Screen Not Detected; U Phencyclidine Screen Not Detected; U Propoxyphene Screen Not Detected
[2020-09-11 17:56] LABS: Albumin, Blood 3.4 g/dL (3.4-5.0); Anion Gap 3 mmol/L (6-16); Blood Urea Nitrogen 17 mg/dL (8-24); Bun/Creatinine Ratio 15.3 (12.0-20.0); CO2, Blood 32 mmol/L (21-32); Calcium, Blood 9.6 mg/dL (8.5-10.1); Chloride, Blood 103 mmol/L (98-108); Creatinine, Blood 1.11 mg/dL (0.60-1.20); Glomerular Filtration Rate >60 (60-); Glucose, Blood 106 mg/dL (70-99); Phosphorus, Blood 4.2 mg/dL (2.5-4.9); Potassium, Blood 5.4 mmol/L (3.5-5.5); Sodium, Blood 138 mmol/L (136-145)
== END 2020-09-11 17:35 | disposition left against medical advice (07) | DRG 293 ==
LOC: ER 09:34 → ERHOLD 15:40 → ER 15:40 → SURS 15:40 → ER 17:35 → ERHOLD 17:35
PROVIDERS: Emergency Medicine; Family Medicine; ADMIT Internal Medicine
DX: I50.23 Acute on chronic systolic (congestive) heart failure (principal); R77.8 Other specified abnormalities of plasma proteins; G47.33 Obstructive sleep apnea (adult) (pediatric); F17.210 Nicotine dependence, cigarettes, uncomplicated; K81.9 Cholecystitis, unspecified; Z79.82 Long term (current) use of aspirin; Z79.02 Long term (current) use of antithrombotics/antiplatelets
CPT/HCPCS: 36415; 71045; 71260; 76705; 80053; 80069; 83605; 83690; 83735; 83880; 84100; 84484; 85025; 85379; 87040; 93005; 93010; 96365-59; 96375-59; 96376-59; 99285-25; A9270-GY; J1940; J2270; J2405; J2543; Q9967

== ENCOUNTER 2020-09-12 21:00 | Inpatient (IN) | payer OTHER ==
[~2020-09-12] VITALS: Ht 170.2 cm; Wt 94.0 kg
[~2020-09-12 21:00] MED LIST changes: +ATOR80 PO; +Aspir 8181 MG PO; +CLOP75 PO; +Cyclobenzaprine10 MG PO; +Isosorbide Dini30 MG PO; +PANT40 PO; +Ventolin/Prove6.7 GM INH; +Vitamin D2000 UNIT PO
[2020-09-12 21:57] LABS: BASOPHILS ABSOLUTE AUTO 0.05 K/mm3 (0.00-0.23); BASOPHILS PERCENT AUTO 1 % (0-2); EOSINOPHILS ABSOLUTE AUTO 0.32 K/mm3 (0.00-0.68); EOSINOPHILS PERCENT AUTO 5 % (0-6); Hematocrit 45.7 % (37.0-53.0); Hemoglobin 13.9 g/dL (13.5-17.5); IMMATURE GRAN ABSOLUTE AUTO 0.02 K/mm3 (0.00-0.10); IMMATURE GRAN PERCENT AUTO 0 % (0-1); LYMPHOCYTES ABSOLUTE AUTO 1.83 K/mm3 (0.84-5.20); LYMPHOCYTES PERCENT AUTO 27 % (21-46); MONOCYTES ABSOLUTE AUTO 0.82 K/mm3 (0.16-1.47); MONOCYTES PERCENT AUTO 12 % (4-13); Mean Corpuscular HGB 24.3 pg (26.0-34.0); Mean Corpuscular HGB Conc 30.4 g/dL (31.5-36.5); Mean Corpuscular Volume 80 fL (80-100); Mean Platelet Volume 11.3 fL (9.1-12.4); NEUTROPHILS ABSOLUTE AUTO 3.82 K/mm3 (1.96-9.15); NEUTROPHILS PERCENT AUTO 56 % (41-73); Platelet Count 201 K/mm3 (150-400); RDW Coefficient Variation 15.9 % (11.7-14.2); RDW Standard Deviation 45.5 fL (35.1-46.3); Red Blood Cell Count 5.71 M/mm3 (4.30-5.90); White Blood Cell Count 6.86 K/mm3 (4.00-11.30)
[2020-09-12 22:19] LABS: Alanine Aminotransfer (ALT/SGP 132 U/L (12-78); Albumin, Blood 3.2 g/dL (3.4-5.0); Albumin/Globulin Ratio 0.8 (0.8-1.8); Alk Phos 97 U/L (50-136); Anion Gap 5 mmol/L (6-16); Aspartate Aminotrans (AST/SGOT 25 U/L (12-37); Bilirubin, Total 0.5 mg/dL (0.1-1.0); Blood Urea Nitrogen 19 mg/dL (8-24); Bun/Creatinine Ratio 18.6 (12.0-20.0); CO2, Blood 29 mmol/L (21-32); Calcium, Blood 8.7 mg/dL (8.5-10.1); Chloride, Blood 105 mmol/L (98-108); Creatinine, Blood 1.02 mg/dL (0.60-1.20); Glomerular Filtration Rate >60 (60-); Glucose, Blood 124 mg/dL (70-99); Potassium, Blood 4.2 mmol/L (3.5-5.5); Sodium, Blood 139 mmol/L (136-145); Total Protein, Blood 7.2 g/dL (6.4-8.2); Troponin I 0.032 ng/mL (0.000-0.040)
--- NOTE | 2020-09-13 05:46 | NUR ---
SHIFT SUMMARY PT NEW ADMIT THIS AM. AAOX4. NPO. DISCOMFORT DECREASED WITH 25mcg FENTANYL X1 THIS AM. NO NAUSEA/EMESIS. PT MOVES WELL IN BED, RESTING SINCE ADMISSION. ORIENTED TO ROOM + CALL LIGHT USE. PT CURRENTLY RESTING IN BED WITH CALL LIGHT IN REACH.
--- NOTE | 2020-09-13 09:06 | NUR ---
0700 PT IS ON TELEMETRY HR IS 108 WITH PVC'S. AM VITAL SIGNS ARE CHARTED WITH A HR OF 53
--- NOTE | 2020-09-13 17:47 | NUR ---
SUMMARY PT SLEEPING WITH SNORING RESPIRATIONS FOR MOST OF SHIF. TOLERATING CARDIAC DIET WITHOUT NAUSEA OR REPORTED INCREASE IN ABD PAIN. PT REPORTS PAIN EACH TIME AWAKENED, RETURNS TO SLEEP WITHIN MINUTES OF BEING AWAKENED
--- NOTE | 2020-09-14 03:39 | NUR ---
SHIFT SUMMARY: ACALCULOUS CHOLECYSTITIS PT IS ALERT AND ORIENTED X4 WHILE AWAKE. HE CAN BE DROWSY AT TIMES WHEN INITIALLY WOKEN UP FROM SLEEPING BUT IS EASILY AROUSABLE. HE HAS BEEN MAINLY SLEEPING WITH SNORING MOST OF THE SHIFT. PAIN IS MANAGED WITH ONE NORCO. HE HAS BEEN NPO SINCE MIDNIGHT. PT DOES HAVE TELE AND HAS BEEN SINUS TACH WITH PVC'S. PT IS CURRENTLY LAYING IN BED WATCHING TV WITH CALL LIGHT WITHIN REACH. THE PLAN IS TO WAIT FOR DR. VICTOR TO SEE WHAT HE CAN DO FOR HIM. ALSO MANAGING PAIN.
[2020-09-14 06:10] LABS: BASOPHILS ABSOLUTE AUTO 0.05 K/mm3 (0.00-0.23); BASOPHILS PERCENT AUTO 1 % (0-2); EOSINOPHILS PERCENT AUTO 5 % (0-6); Hematocrit 43.2 % (37.0-53.0); Hemoglobin 13.1 g/dL (13.5-17.5); IMMATURE GRAN ABSOLUTE AUTO 0.01 K/mm3 (0.00-0.10); IMMATURE GRAN PERCENT AUTO 0 % (0-1); LYMPHOCYTES ABSOLUTE AUTO 2.04 K/mm3 (0.84-5.20); LYMPHOCYTES PERCENT AUTO 36 % (21-46); MONOCYTES ABSOLUTE AUTO 0.49 K/mm3 (0.16-1.47); MONOCYTES PERCENT AUTO 9 % (4-13); Mean Corpuscular HGB Conc 30.3 g/dL (31.5-36.5); Mean Corpuscular Volume 82 fL (80-100); Mean Platelet Volume 11.7 fL (9.1-12.4); NEUTROPHILS ABSOLUTE AUTO 2.74 K/mm3 (1.96-9.15); NEUTROPHILS PERCENT AUTO 49 % (41-73); Platelet Count 183 K/mm3 (150-400); RDW Coefficient Variation 16.2 % (11.7-14.2); RDW Standard Deviation 47.8 fL (35.1-46.3); Red Blood Cell Count 5.25 M/mm3 (4.30-5.90); White Blood Cell Count 5.63 K/mm3 (4.00-11.30)
[2020-09-14 06:31] LABS: Anion Gap 3 mmol/L (6-16); Blood Urea Nitrogen 20 mg/dL (8-24); Bun/Creatinine Ratio 16.5 (12.0-20.0); CO2, Blood 31 mmol/L (21-32); Calcium, Blood 8.6 mg/dL (8.5-10.1); Chloride, Blood 105 mmol/L (98-108); Creatinine, Blood 1.21 mg/dL (0.60-1.20); Glomerular Filtration Rate >60 (60-); Glucose, Blood 96 mg/dL (70-99); Potassium, Blood 4.9 mmol/L (3.5-5.5); Sodium, Blood 139 mmol/L (136-145)
--- NOTE | 2020-09-14 09:40 | NUR ---
A&OX3, DENIES ANY NAUSEA, C/O PAIN ON L SIDE THIS AM, MEDICATED WITH FENTANYL, DENIES ANY OTHER DISCOMFORT AT THIS TIME, CONT. TO MONITOR FOR ANY CHANGES.
[2020-09-14 11:00] LABS: Albumin, Blood 3.1 g/dL (3.4-5.0); Albumin/Globulin Ratio 0.8 (0.8-1.8); Bilirubin, Direct 0.1 mg/dL (0.0-0.3); Bilirubin, Indirect 0.4 mg/dL (0.1-0.7); Bilirubin, Total 0.5 mg/dL (0.1-1.0); Globulin, Blood 3.8 g/dL (2.2-4.0); Total Protein, Blood 6.9 g/dL (6.4-8.2)
--- NOTE | 2020-09-14 17:42 | NUR ---
ARRIVED FROM GUT SORTER VIA GURNEY, DROWSY, BUT AWAKENS EASILY, A&OX3, PERCUTANEOUS DRAIN NOTED ON RUQ DRAINING DARK BROWNISH KENIA DRAINAGE, C/O SORENESS ON DRAIN AREA, LUNGS CLEAR, HR IRREG, ACTIVE BT'S X4, PT REQUESTING ICE CHIPS, NO OTHER CHANGES THIS SHIFT.
--- NOTE | 2020-09-14 20:50 | NUR ---
PAIN: PT REPORTING PAIN NOT RESOLVED BY CURRENT PAIN MED ORDERS. PT OFFERED HEAT/COOL THERAPY, DECINED SUGGESTIONS. PT STATES FENTANYL NOT WORKING, STATES PREVIOUSLY GIVEN MORPHINE W/BETTER RELIEF.PT REQUESTING TO CONTACT MD FOR NEW ORDERS. CALL PLACED TO DR ASIF, PT HX, SURG PROCEDURE, LABS AND CURRENT MED ORDERS REV. NEW ORDERS FOR MORPHINE AND TORADOL AND TO D/C FENTANYL.
[2020-09-15 04:54] LABS: BASOPHILS ABSOLUTE AUTO 0.02 K/mm3 (0.00-0.23); BASOPHILS PERCENT AUTO 0 % (0-2); EOSINOPHILS ABSOLUTE AUTO 0.15 K/mm3 (0.00-0.68); EOSINOPHILS PERCENT AUTO 3 % (0-6); Hematocrit 44.2 % (37.0-53.0); Hemoglobin 13.2 g/dL (13.5-17.5); IMMATURE GRAN ABSOLUTE AUTO 0.02 K/mm3 (0.00-0.10); IMMATURE GRAN PERCENT AUTO 0 % (0-1); LYMPHOCYTES ABSOLUTE AUTO 1.42 K/mm3 (0.84-5.20); LYMPHOCYTES PERCENT AUTO 24 % (21-46); MONOCYTES ABSOLUTE AUTO 0.49 K/mm3 (0.16-1.47); MONOCYTES PERCENT AUTO 8 % (4-13); Mean Corpuscular HGB 24.8 pg (26.0-34.0); Mean Corpuscular HGB Conc 29.9 g/dL (31.5-36.5); Mean Corpuscular Volume 83 fL (80-100); Mean Platelet Volume 11.7 fL (9.1-12.4); NEUTROPHILS ABSOLUTE AUTO 3.73 K/mm3 (1.96-9.15); NEUTROPHILS PERCENT AUTO 64 % (41-73); Platelet Count 186 K/mm3 (150-400); RDW Coefficient Variation 16.4 % (11.7-14.2); RDW Standard Deviation 48.1 fL (35.1-46.3); Red Blood Cell Count 5.33 M/mm3 (4.30-5.90); White Blood Cell Count 5.83 K/mm3 (4.00-11.30)
[2020-09-15 05:12] LABS: Albumin, Blood 3.3 g/dL (3.4-5.0); Albumin/Globulin Ratio 0.8 (0.8-1.8); Bilirubin, Total 0.7 mg/dL (0.1-1.0); Bun/Creatinine Ratio 15.5 (12.0-20.0); Calcium, Blood 8.7 mg/dL (8.5-10.1); Creatinine, Blood 1.42 mg/dL (0.60-1.20); Potassium, Blood 4.8 mmol/L (3.5-5.5); Total Protein, Blood 7.3 g/dL (6.4-8.2)
--- NOTE | 2020-09-15 05:52 | NUR ---
SHIFT SUMMARY POD 1 PERCUTANEOUS DRAIN PLACEMENT. AA0X4, VSS. PT HAS BEEN SLEEPING MOST OF SHIFT. PAIN MANAGED PER EMAR WITH MORPHINE AND TORODOL. NAUSEA MANAGED WITH ZOFRAN EARLY IN SHIFT. TOLERATED PO WELL. ABLE TO EAT SOME OF DINNER AND SNACKS. DRINKING FLUIDS DURING SHIFT. DRAIN PATENT WITH BROWN/YELLOW OUTPUT. DENIES ANY SOB. PT IND IN ROOM AMBULATING TO RESTROOM. NO MEASUREMENT FOR URINE, PROVIDED EDUCATION AND ASKED PATIENT TO USE URINAL THAT WAS IN RESTROOM.
--- NOTE | 2020-09-15 08:31 | NUR ---
REPORTS HAVING BETTER PAIN CONTROL THIS AM WITH TORADOL AND MORPHINE, DENIES ANY NAUSEA, REPORTS TOLERATED FULL LIQUIDS WELL, DIET ADVANCED TO REGULAR THIS AM, CONT. TO MONITOR FOR ANY CHANGES.
--- NOTE | 2020-09-15 18:12 | NUR ---
REPORTS TOLERATING REGULAR DIET WELL, ENCOURAGED TO AMBULATE BUT PT STAYED IN ROOM ALL DAY, PERC. DRAIN HAD 22OCC OUTPUT THIS SHIFT, REPORTS HAVING ADEQUATE PAIN CONTROL WITH MORPHINE, NO ACUTE CHANGES THIS SHIFT.
--- NOTE | 2020-09-16 05:16 | NUR ---
SHIFT SUMMARY POD 2 PERCUTANEOUS DRAIN PLACEMENT AA0X4, PT PAINFUL T/O SHIFT MEDICATED PER EMAR. ENCOURAGED PT TO AMBULATE TO HELP PASS GAS, PT AMBULATING T/O HALLWAY INDEPENDENTLY. PT TOLERATING PO WELL. PERCUTANEOUS DRAIN STILL HAVING BROWN DRAINAGE. PLAN IS TO POSSIBLY DC TODAY.
[2020-09-16 05:18] LABS: Alanine Aminotransfer (ALT/SGP 70 U/L (12-78); Albumin, Blood 3.3 g/dL (3.4-5.0); Albumin/Globulin Ratio 0.8 (0.8-1.8); Alk Phos 85 U/L (50-136); Anion Gap 5 mmol/L (6-16); Aspartate Aminotrans (AST/SGOT 21 U/L (12-37); Bilirubin, Total 0.5 mg/dL (0.1-1.0); Blood Urea Nitrogen 21 mg/dL (8-24); Bun/Creatinine Ratio 18.4 (12.0-20.0); CO2, Blood 27 mmol/L (21-32); Calcium, Blood 8.5 mg/dL (8.5-10.1); Chloride, Blood 105 mmol/L (98-108); Creatinine, Blood 1.14 mg/dL (0.60-1.20); Globulin, Blood 4.2 g/dL (2.2-4.0); Glomerular Filtration Rate >60 (60-); Glucose, Blood 104 mg/dL (70-99); Potassium, Blood 4.7 mmol/L (3.5-5.5); Sodium, Blood 137 mmol/L (136-145); Total Protein, Blood 7.5 g/dL (6.4-8.2)
--- NOTE | 2020-09-16 19:40 | NUR ---
SHIFT SUMMARY PLAN FOR PROCEDURE IN [facility] TOMORROW AFTERNOON. PT'S PAIN REASONABLY MANAGED W/ PO & IV MEDS. DRAIN CONTINUES TO PUT OUT HIGH AMOUNT. PT IND IN ROOM.
--- NOTE | 2020-09-17 04:10 | NUR ---
SHIFT SUMMARY: PT A&O X4. VSS. ABD MODERATLY DISTENDED. PT REPORTS PASSING FLATUS AND HAVING BM'S. URESIL DRAIN IN RUQ DRAINING A BROWN THICK LIQ. 250CC EMPTIED. PAIN BEING MANAGED WITH NORCO AND MORPHINE PER EMAR. PT INDEPENDENT IN ROOM. VOIDING AND JAMAAL PO. PLAN FOR PT TO BE NPO LATER TODAY FOR CARDIAC PROCEDURE AT 4PM.
[2020-09-17] MEDS ORDERED: AMOCLA875 PO (12:01)
[2020-09-17] MEDS ORDERED: HYDACE10B PO (12:01)
--- NOTE | 2020-09-17 14:43 | NUR ---
DISCHARGE ESCORTED OUT VIA W/C. CARIN SCRIPT GIVEN AND ABX CALLED TO [facility]. PT STATES UNDERSTANDING IMPORTANCE OF F/U APPOINTMENTS AND TAKING MEDICATIONS.
== END 2020-09-17 14:25 | disposition home or self-care (01) | DRG 444 ==
LOC: ER 21:00 → SURS 23:41 → ERHOLD 23:41 → SURS 09-13 02:30
PROVIDERS: Internal Medicine; Physician Assistant; ADMIT Internal Medicine
PROC: 0F9430Z Drainage of Gallbladder with Drainage Device, Percutaneous Approach (ICD-10-PCS; principal; 2020-09-14)
DX: K81.0 Acute cholecystitis (principal); I50.23 Acute on chronic systolic (congestive) heart failure; I24.0 Acute coronary thrombosis not resulting in myocardial infarction; I42.7 Cardiomyopathy due to drug and external agent; I11.0 Hypertensive heart disease with heart failure; F15.10 Other stimulant abuse, uncomplicated; F17.210 Nicotine dependence, cigarettes, uncomplicated; G47.33 Obstructive sleep apnea (adult) (pediatric); Z91.19 Patient's noncompliance with other medical treatment and regimen; Z11.59 Encounter for screening for other viral diseases
CPT/HCPCS: 36415; 47490; 71046; 80048; 80053; 80076; 83880; 84484; 85025; 93005; 93010; 94640; 94760; 96365; 96375; 96376; 99152; 99153; 99285-25; A9270-GY; C1729; C1769; J0295; J0690; J1170; J1885; J2270; J2405; J2543; J3010; J7030; J7040; J7050; Q9967; U0004

== ENCOUNTER 2020-09-18 22:15 | Emergency (ER) | payer OTHER ==
[~2020-09-18] VITALS: Ht 170.2 cm; Wt 90.7 kg
[~2020-09-18 22:15] MED LIST changes: +AMOCLA875 PO; +HYDACE10B PO
[2020-09-18 23:23] LABS: Source, Urine Clean Catch
[2020-09-18 23:28] LABS: BASOPHILS ABSOLUTE AUTO 0.02 K/mm3 (0.00-0.23); BASOPHILS PERCENT AUTO 0 % (0-2); EOSINOPHILS ABSOLUTE AUTO 0.13 K/mm3 (0.00-0.68); EOSINOPHILS PERCENT AUTO 2 % (0-6); Hematocrit 42.9 % (37.0-53.0); Hemoglobin 12.9 g/dL (13.5-17.5); IMMATURE GRAN ABSOLUTE AUTO 0.01 K/mm3 (0.00-0.10); IMMATURE GRAN PERCENT AUTO 0 % (0-1); LYMPHOCYTES ABSOLUTE AUTO 1.01 K/mm3 (0.84-5.20); LYMPHOCYTES PERCENT AUTO 13 % (21-46); MONOCYTES ABSOLUTE AUTO 0.59 K/mm3 (0.16-1.47); MONOCYTES PERCENT AUTO 7 % (4-13); Mean Corpuscular HGB 24.6 pg (26.0-34.0); Mean Corpuscular HGB Conc 30.1 g/dL (31.5-36.5); Mean Corpuscular Volume 82 fL (80-100); Mean Platelet Volume 12.3 fL (9.1-12.4); NEUTROPHILS ABSOLUTE AUTO 6.22 K/mm3 (1.96-9.15); NEUTROPHILS PERCENT AUTO 78 % (41-73); Platelet Count 162 K/mm3 (150-400); RDW Coefficient Variation 16.6 % (11.7-14.2); RDW Standard Deviation 48.7 fL (35.1-46.3); Red Blood Cell Count 5.25 M/mm3 (4.30-5.90); White Blood Cell Count 7.98 K/mm3 (4.00-11.30)
[2020-09-18 23:30] LABS: Bilirubin, Urine Neg (Neg); Blood, Urine Neg (Neg); Glucose Qualitative, Urine Neg (Neg); Ketones, Urine Neg (Neg); Leukocyte Esterase, Urine Neg (Neg); Nitrite, Urine Neg (Neg); Protein, Urine 1+ (Neg); Urobilinogen, Urine NORM (Normal)
[2020-09-18 23:34] LABS: Appearance, Urine Clear (Clear); Color, Urine Yellow (P-Yellow)
[2020-09-18 23:48] LABS: Alanine Aminotransfer (ALT/SGP 46 U/L (12-78); Albumin, Blood 3.4 g/dL (3.4-5.0); Albumin/Globulin Ratio 0.8 (0.8-1.8); Alk Phos 88 U/L (50-136); Anion Gap 4 mmol/L (6-16); Aspartate Aminotrans (AST/SGOT 21 U/L (12-37); Bilirubin, Total 0.6 mg/dL (0.1-1.0); Blood Urea Nitrogen 21 mg/dL (8-24); CO2, Blood 26 mmol/L (21-32); Calcium, Blood 8.4 mg/dL (8.5-10.1); Chloride, Blood 109 mmol/L (98-108); Globulin, Blood 4.5 g/dL (2.2-4.0); Glomerular Filtration Rate >60 (60-); Glucose, Blood 105 mg/dL (70-99); Potassium, Blood 4.4 mmol/L (3.5-5.5); Sodium, Blood 139 mmol/L (136-145); Total Protein, Blood 7.9 g/dL (6.4-8.2); Troponin I 0.042 ng/mL (0.000-0.040)
== END 2020-09-19 02:03 | disposition home or self-care (01) ==
LOC: ER 22:15
PROVIDERS: Emergency Medicine
DX: R10.11 Right upper quadrant pain (principal); R14.0 Abdominal distension (gaseous); I11.0 Hypertensive heart disease with heart failure; I50.20 Unspecified systolic (congestive) heart failure; Z79.82 Long term (current) use of aspirin; Z88.8 Allergy status to other drugs, medicaments and biological substances; Z79.899 Other long term (current) drug therapy; Z79.02 Long term (current) use of antithrombotics/antiplatelets
CPT/HCPCS: 36415; 71045; 74019; 76705; 80053; 83690; 83880; 84484; 85025; 93005; 93010; 96374; 99284-25; J2270

== ENCOUNTER 2020-09-25 22:00 | Emergency (ER) | payer OTHER ==
[~2020-09-25] VITALS: Ht 167.6 cm; Wt 90.7 kg
[2020-09-25 23:18] LABS: Alanine Aminotransfer (ALT/SGP 34 U/L (12-78); Albumin/Globulin Ratio 0.7 (0.8-1.8); Alk Phos 98 U/L (50-136); Anion Gap 4 mmol/L (6-16); Aspartate Aminotrans (AST/SGOT 25 U/L (12-37); Bilirubin, Total 0.4 mg/dL (0.1-1.0); Blood Urea Nitrogen 22 mg/dL (8-24); CO2, Blood 27 mmol/L (21-32); Calcium, Blood 8.2 mg/dL (8.5-10.1); Chloride, Blood 108 mmol/L (98-108); Globulin, Blood 4.2 g/dL (2.2-4.0); Glomerular Filtration Rate >60 (60-); Glucose, Blood 91 mg/dL (70-99); Potassium, Blood 3.6 mmol/L (3.5-5.5); Sodium, Blood 139 mmol/L (136-145); Total Protein, Blood 7.2 g/dL (6.4-8.2)
== END 2020-09-26 00:19 | disposition home or self-care (01) ==
LOC: ER 22:00
PROVIDERS: Emergency Medicine
DX: S39.91XA Unspecified injury of abdomen, initial encounter (principal); I10 Essential (primary) hypertension; Z88.8 Allergy status to other drugs, medicaments and biological substances; Z79.82 Long term (current) use of aspirin; Z79.02 Long term (current) use of antithrombotics/antiplatelets; Z79.899 Other long term (current) drug therapy; W51.XXXA Accidental striking against or bumped into by another person, initial encounter
CPT/HCPCS: 76705; 80053; 83690; 93005; 93010; 96374; 99284-25; A9270; J1170

== ENCOUNTER 2020-09-29 23:39 | Emergency (ER) | payer OTHER ==
[~2020-09-29] VITALS: Ht 170.2 cm; Wt 90.7 kg
[2020-09-30 00:01] LABS: BASOPHILS ABSOLUTE AUTO 0.04 K/mm3 (0.00-0.23); BASOPHILS PERCENT AUTO 1 % (0-2); EOSINOPHILS ABSOLUTE AUTO 0.09 K/mm3 (0.00-0.68); EOSINOPHILS PERCENT AUTO 1 % (0-6); Hematocrit 42.9 % (37.0-53.0); IMMATURE GRAN ABSOLUTE AUTO 0.01 K/mm3 (0.00-0.10); IMMATURE GRAN PERCENT AUTO 0 % (0-1); LYMPHOCYTES ABSOLUTE AUTO 1.69 K/mm3 (0.84-5.20); LYMPHOCYTES PERCENT AUTO 23 % (21-46); MONOCYTES ABSOLUTE AUTO 0.76 K/mm3 (0.16-1.47); MONOCYTES PERCENT AUTO 11 % (4-13); Mean Corpuscular HGB 24.1 pg (26.0-34.0); Mean Corpuscular HGB Conc 30.3 g/dL (31.5-36.5); Mean Corpuscular Volume 79 fL (80-100); Mean Platelet Volume 11.3 fL (9.1-12.4); NEUTROPHILS ABSOLUTE AUTO 4.62 K/mm3 (1.96-9.15); NEUTROPHILS PERCENT AUTO 64 % (41-73); Platelet Count 243 K/mm3 (150-400); RDW Coefficient Variation 16.5 % (11.7-14.2); RDW Standard Deviation 46.5 fL (35.1-46.3); White Blood Cell Count 7.21 K/mm3 (4.00-11.30)
[2020-09-30 00:20] LABS: Alanine Aminotransfer (ALT/SGP 198 U/L (12-78); Albumin, Blood 3.4 g/dL (3.4-5.0); Albumin/Globulin Ratio 0.8 (0.8-1.8); Alk Phos 107 U/L (50-136); Anion Gap 7 mmol/L (6-16); Aspartate Aminotrans (AST/SGOT 185 U/L (12-37); Bilirubin, Total 1.5 mg/dL (0.1-1.0); Blood Urea Nitrogen 23 mg/dL (8-24); Bun/Creatinine Ratio 21.3 (12.0-20.0); CO2, Blood 26 mmol/L (21-32); Calcium, Blood 8.9 mg/dL (8.5-10.1); Chloride, Blood 103 mmol/L (98-108); Creatinine, Blood 1.08 mg/dL (0.60-1.20); Globulin, Blood 4.4 g/dL (2.2-4.0); Glomerular Filtration Rate >60 (60-); Glucose, Blood 75 mg/dL (70-99); Potassium, Blood 3.2 mmol/L (3.5-5.5); Sodium, Blood 136 mmol/L (136-145); Total Protein, Blood 7.8 g/dL (6.4-8.2); Troponin I 0.037 ng/mL (0.000-0.040)
[2020-09-30 00:59] LABS: Source, Urine Clean Catch
[2020-09-30 01:03] LABS: Appearance, Urine Clear (Clear); Bilirubin, Urine 3+ (Neg); Blood, Urine 5+ (Neg); Color, Urine Amber (P-Yellow); Glucose Qualitative, Urine Neg (Neg); Ketones, Urine Neg (Neg); Leukocyte Esterase, Urine 3+ (Neg); Nitrite, Urine Neg (Neg); Protein, Urine 2+ (Neg); Urobilinogen, Urine 2+ (Normal)
[2020-09-30 01:09] LABS: Amorphous Light (0-Heavy); Bacteria Mod /hpf; Red Blood Cells, Urine 0-2 /hpf (0-2); Squamous Epithelial Cells Not Seen /hpf (Few); White Blood Cells, Urine 0-2 /hpf (0-5)
[2020-09-30 01:13] LABS: U Amphetamine Screen Not Detected; U Barbituate Screen Not Detected; U Benzodiazapine Screen Not Detected; U Buprenorphine Screen Not Detected; U Cannabinoids Screen Not Detected; U Cocaine Screen Not Detected; U Methadone Screen Not Detected; U Methamphetamine Screen Not Detected; U Opiates Screen DETECTED; U Oxycodone Screen Not Detected; U Phencyclidine Screen Not Detected; U Propoxyphene Screen Not Detected
[2020-09-30] MEDS ORDERED: OXYACE7.5T PO (01:31)
== END 2020-09-30 02:34 | disposition home or self-care (01) ==
LOC: ER 23:39
PROVIDERS: Emergency Medicine
DX: N39.0 Urinary tract infection, site not specified (principal); F17.200 Nicotine dependence, unspecified, uncomplicated; Z79.82 Long term (current) use of aspirin; Z79.02 Long term (current) use of antithrombotics/antiplatelets; Z88.8 Allergy status to other drugs, medicaments and biological substances; Z79.899 Other long term (current) drug therapy
CPT/HCPCS: 36415; 74177; 80053; 81001; 83690; 84484; 85025; 87086; 93005; 93010; 96374; 96375; 99284-25; A9270; J1170; J2270; J2405; Q9967

== ENCOUNTER 2020-10-01 22:47 | Observation (INO) | payer OTHER ==
[~2020-10-01] VITALS: Ht 170.2 cm; Wt 96.0 kg
[~2020-10-01 22:47] MED LIST changes: +OXYACE7.5T PO
[2020-10-01 23:14] LABS: BASOPHILS ABSOLUTE AUTO 0.02 K/mm3 (0.00-0.23); BASOPHILS PERCENT AUTO 0 % (0-2); EOSINOPHILS ABSOLUTE AUTO 0.02 K/mm3 (0.00-0.68); EOSINOPHILS PERCENT AUTO 0 % (0-6); Hematocrit 42.9 % (37.0-53.0); Hemoglobin 13.1 g/dL (13.5-17.5); IMMATURE GRAN ABSOLUTE AUTO 0.03 K/mm3 (0.00-0.10); IMMATURE GRAN PERCENT AUTO 0 % (0-1); LYMPHOCYTES ABSOLUTE AUTO 1.13 K/mm3 (0.84-5.20); LYMPHOCYTES PERCENT AUTO 11 % (21-46); MONOCYTES ABSOLUTE AUTO 1.32 K/mm3 (0.16-1.47); MONOCYTES PERCENT AUTO 13 % (4-13); Mean Corpuscular HGB 24.1 pg (26.0-34.0); Mean Corpuscular HGB Conc 30.5 g/dL (31.5-36.5); Mean Corpuscular Volume 79 fL (80-100); Mean Platelet Volume 11.4 fL (9.1-12.4); NEUTROPHILS ABSOLUTE AUTO 7.65 K/mm3 (1.96-9.15); NEUTROPHILS PERCENT AUTO 75 % (41-73); Platelet Count 244 K/mm3 (150-400); RDW Coefficient Variation 16.7 % (11.7-14.2); RDW Standard Deviation 46.6 fL (35.1-46.3); Red Blood Cell Count 5.43 M/mm3 (4.30-5.90); White Blood Cell Count 10.17 K/mm3 (4.00-11.30)
[2020-10-01 23:53] LABS: Alanine Aminotransfer (ALT/SGP 1266 U/L (12-78); Albumin, Blood 3.5 g/dL (3.4-5.0); Albumin/Globulin Ratio 0.9 (0.8-1.8); Alk Phos 106 U/L (50-136); Anion Gap 9 mmol/L (6-16); Aspartate Aminotrans (AST/SGOT 1315 U/L (12-37); Bilirubin, Total 3.2 mg/dL (0.1-1.0); Blood Urea Nitrogen 33 mg/dL (8-24); Bun/Creatinine Ratio 27.7 (12.0-20.0); CO2, Blood 24 mmol/L (21-32); Chloride, Blood 95 mmol/L (98-108); Creatinine, Blood 1.19 mg/dL (0.60-1.20); Globulin, Blood 3.9 g/dL (2.2-4.0); Glomerular Filtration Rate >60 (60-); Glucose, Blood 112 mg/dL (70-99); Potassium, Blood 4.4 mmol/L (3.5-5.5); Sodium, Blood 128 mmol/L (136-145); Total Protein, Blood 7.4 g/dL (6.4-8.2)
[2020-10-02 01:23] LABS: Source, Urine Clean Catch
[2020-10-02 01:29] LABS: Bilirubin, Urine Neg (Neg); Blood, Urine 5+ (Neg); Glucose Qualitative, Urine Neg (Neg); Ketones, Urine Neg (Neg); Leukocyte Esterase, Urine 3+ (Neg); Nitrite, Urine Neg (Neg); Protein, Urine 1+ (Neg); Urobilinogen, Urine NORM (Normal)
[2020-10-02 01:32] LABS: Appearance, Urine Clear (Clear); Color, Urine Yellow (P-Yellow)
[2020-10-02 01:37] LABS: Bacteria Mod /hpf; Red Blood Cells, Urine 0-2 /hpf (0-2); Squamous Epithelial Cells Not Seen /hpf (Few); White Blood Cells, Urine 0-2 /hpf (0-5)
[2020-10-02 06:02] LABS: U Amphetamine Screen Not Detected; U Barbituate Screen Not Detected; U Benzodiazapine Screen Not Detected; U Buprenorphine Screen Not Detected; U Cannabinoids Screen Not Detected; U Cocaine Screen Not Detected; U Methadone Screen Not Detected; U Methamphetamine Screen Not Detected; U Opiates Screen Not Detected; U Oxycodone Screen Not Detected; U Phencyclidine Screen Not Detected; U Propoxyphene Screen Not Detected
--- NOTE | 2020-10-02 06:18 | NUR ---
SHIFT SUMMARY/ADMIT: MISTI IS BEING ADMITTED TO THE FLOOR FOR ABDOMINAL PAIN AND ELEVATED LIVER ENZYMES. HE HAS BEEN IN AND OUT OF THE ER THIS WEEK DUE TO THE ABDOMINAL PAIN. IT ORGINALLY STATED WHEN HE GOT A GALLBADDER INFECTION 2 WEEKS AGO BUT DUE TO HIS CARDIAC STATUS HE WAS NOT ABLE TO GO INTO [facility]. THEREFORE DR. VICTOR PLACED A ALEC DRAIN. HE ARRIVED TO THE FLOOR VIA WC AND IS ABLE TO TRANSFER SELF TO BED. HE IS AOX3, VERY DROUSY. HE IS VERY PERSISENT ABOUT HAVING WATER EVEN THOUGH ORDER STATES NPO. 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 HE HAS A HISTORY OF TRANSAMINITIS. LUNG SOUNDS ARE CLEAR, HR IS SINUS ON TELE. VS WNL. REPORTS PAIN 9/10. STARTED IVF AND FLAGYL ANTIBOTIC. GAVE 50MCQ OF FENTANYL FOR PAIN. HE DID ASK IF I COULD CHANGE THE PAIN MED ALREADY HE STATES HE DOES NOT LIKE IT AND PERFERS DILUDID. STATES HE FELL LAST TIME WHEN ON IT. BED ALARM WAS PLACED JUST IN CASE. DRAIN TO RUQ IS TO ALEC BULB THAT HE DRAINS HIMSELF. HAS BILE DRAINAGE IN IT. DID NOT WANT DRESSING REMOVED STATES IT HURTS TO MUCH. ABDOMIN DISTENDED, FIRM, GAURDED, BT ACTIVE. DENIES NAUSEA AT THIS TIME. PATIENT IS NOW ASLEEP IN BED, CALL LIGHT IS IN REACH, BED ALARM IS ON. WILL REPORT TO DAYSHIFT.
[2020-10-02 06:35] LABS: BASOPHILS ABSOLUTE AUTO 0.04 K/mm3 (0.00-0.23); BASOPHILS PERCENT AUTO 0 % (0-2); EOSINOPHILS ABSOLUTE AUTO 0.03 K/mm3 (0.00-0.68); EOSINOPHILS PERCENT AUTO 0 % (0-6); Hematocrit 42.2 % (37.0-53.0); IMMATURE GRAN ABSOLUTE AUTO 0.03 K/mm3 (0.00-0.10); IMMATURE GRAN PERCENT AUTO 0 % (0-1); LYMPHOCYTES ABSOLUTE AUTO 1.59 K/mm3 (0.84-5.20); LYMPHOCYTES PERCENT AUTO 16 % (21-46); MONOCYTES ABSOLUTE AUTO 1.41 K/mm3 (0.16-1.47); MONOCYTES PERCENT AUTO 14 % (4-13); Mean Corpuscular HGB 24.3 pg (26.0-34.0); Mean Corpuscular HGB Conc 30.8 g/dL (31.5-36.5); Mean Corpuscular Volume 79 fL (80-100); Mean Platelet Volume 11.5 fL (9.1-12.4); NEUTROPHILS ABSOLUTE AUTO 6.84 K/mm3 (1.96-9.15); NEUTROPHILS PERCENT AUTO 69 % (41-73); Platelet Count 251 K/mm3 (150-400); RDW Coefficient Variation 16.9 % (11.7-14.2); RDW Standard Deviation 46.2 fL (35.1-46.3); Red Blood Cell Count 5.34 M/mm3 (4.30-5.90); White Blood Cell Count 9.94 K/mm3 (4.00-11.30)
[2020-10-02 07:04] LABS: Alanine Aminotransfer (ALT/SGP 1576 U/L (12-78); Albumin, Blood 3.2 g/dL (3.4-5.0); Albumin/Globulin Ratio 0.8 (0.8-1.8); Alk Phos 104 U/L (50-136); Anion Gap 8 mmol/L (6-16); Aspartate Aminotrans (AST/SGOT 1235 U/L (12-37); Bilirubin, Total 2.7 mg/dL (0.1-1.0); Blood Urea Nitrogen 29 mg/dL (8-24); Bun/Creatinine Ratio 29.7 (12.0-20.0); CO2, Blood 23 mmol/L (21-32); Calcium, Blood 8.4 mg/dL (8.5-10.1); Chloride, Blood 98 mmol/L (98-108); Creatinine, Blood 0.98 mg/dL (0.60-1.20); Glomerular Filtration Rate >60 (60-); Glucose, Blood 91 mg/dL (70-99); Potassium, Blood 4.4 mmol/L (3.5-5.5); Sodium, Blood 129 mmol/L (136-145); Total Protein, Blood 7.2 g/dL (6.4-8.2)
--- NOTE | 2020-10-02 14:49 | NUR ---
DR DEL CASTILLO HEPATIC DIET START DINNER
--- NOTE | 2020-10-02 16:59 | NUR ---
PT HAS BEEN MOSTLY PLEASANT TODYA. HAS ASKED FOR FOOD. OBTAINED DIET THIS AFT. AND HAS HAD SOME JELLO AND DRINKS. EXPECTING DINNER SOON. DR TO DISCUSS PLAN WITH DR VICTOR AND ADVISE WHAT STEPS WE WILL BE TAKING . BED INLOW POSITIOIN, CALL LITE IN REACH, CALLS APROP
--- NOTE | 2020-10-02 20:22 | NUR ---
ASSUMED CARE. MISTI IS VERY SLEEPY STATES HE HAS NOT SLEPT VERY WELL SINCE HE GOT THE TUBE PLACED. "CAN'T GET MUCH SLEEP WHEN YOUR IN PAIN ALL THE TIME". PAIN IS TOLERABLE AT THIS TIME, DRAIN IS TO RUQ, BILE IN BULB. ABDOMIN NO CHANGE ROUND DISTENDED, TENDER. NO NAUSEA AT THIS TIME. TOLERATING FOOD WELL. IVF ALMOST COMPLETE. DENIES ANY OTHER NEEDS AT THIS TIME. CALL LIGHT IS IN REACH.
[2020-10-03 05:16] LABS: BASOPHILS ABSOLUTE AUTO 0.02 K/mm3 (0.00-0.23); BASOPHILS PERCENT AUTO 0 % (0-2); EOSINOPHILS ABSOLUTE AUTO 0.04 K/mm3 (0.00-0.68); EOSINOPHILS PERCENT AUTO 1 % (0-6); Hematocrit 38.1 % (37.0-53.0); Hemoglobin 11.8 g/dL (13.5-17.5); IMMATURE GRAN ABSOLUTE AUTO 0.04 K/mm3 (0.00-0.10); IMMATURE GRAN PERCENT AUTO 1 % (0-1); LYMPHOCYTES ABSOLUTE AUTO 0.72 K/mm3 (0.84-5.20); LYMPHOCYTES PERCENT AUTO 8 % (21-46); MONOCYTES ABSOLUTE AUTO 1.09 K/mm3 (0.16-1.47); MONOCYTES PERCENT AUTO 12 % (4-13); Mean Corpuscular HGB 24.1 pg (26.0-34.0); Mean Corpuscular Volume 78 fL (80-100); Mean Platelet Volume 11.2 fL (9.1-12.4); NEUTROPHILS ABSOLUTE AUTO 6.86 K/mm3 (1.96-9.15); NEUTROPHILS PERCENT AUTO 78 % (41-73); Platelet Count 218 K/mm3 (150-400); RDW Coefficient Variation 16.7 % (11.7-14.2); RDW Standard Deviation 45.9 fL (35.1-46.3); Red Blood Cell Count 4.89 M/mm3 (4.30-5.90); White Blood Cell Count 8.77 K/mm3 (4.00-11.30)
[2020-10-03 05:56] LABS: Albumin, Blood 2.8 g/dL (3.4-5.0); Albumin/Globulin Ratio 0.8 (0.8-1.8); Alk Phos 93 U/L (50-136); Anion Gap 5 mmol/L (6-16); Aspartate Aminotrans (AST/SGOT 653 U/L (12-37); Bilirubin, Total 2.3 mg/dL (0.1-1.0); Blood Urea Nitrogen 26 mg/dL (8-24); Bun/Creatinine Ratio 26.7 (12.0-20.0); CO2, Blood 27 mmol/L (21-32); Calcium, Blood 7.8 mg/dL (8.5-10.1); Chloride, Blood 100 mmol/L (98-108); Creatinine, Blood 0.98 mg/dL (0.60-1.20); Globulin, Blood 3.6 g/dL (2.2-4.0); Glomerular Filtration Rate >60 (60-); Glucose, Blood 93 mg/dL (70-99); Phosphorus, Blood 1.8 mg/dL (2.5-4.9); Potassium, Blood 3.9 mmol/L (3.5-5.5); Sodium, Blood 132 mmol/L (136-145); Total Protein, Blood 6.4 g/dL (6.4-8.2)
[2020-10-03 06:16] LABS: Alanine Aminotransfer (ALT/SGP 1132 U/L (12-78)
--- NOTE | 2020-10-03 06:34 | NUR ---
SHIFT SUMMARY: MISTI DID WELL LAST NIGHT. PAIN WAS WELL CONTROLLED WITH FENTANYL 50MCQ Q 4. HE TENDS TO FALL ASLEEP AFTER THE PAIN MEDICATIONS. GOOD APPETITE. HE IS SELF DRAINING THE ALEC TUBE, BILE IS THE OUTPUT. ABDOMIN IS ROUND DISTENDED, FIRM, BT ACTIVE. IVF COMPLETED. NO NAUSEA NOTED. INDEPENDENT IN THE ROOM. NO OTHER CHANGES TO NOTE THIS SHIFT. PLAN: TRANSFER TO [facility] TO RECEIVE FURTHER IV ANTIBOTIC TREATMENT, PAIN MANAGMENT, MONITOR AND ASSESS.
[2020-10-03 08:10] LABS: HEP A AB, IGM Negative (Negative); HEP B CORE AB, IGM Negative (Negative)
[2020-10-03 08:10] LABS: HBSAG SCREEN Negative (Negative); HEP B CORE AB, TOT Negative (Negative); HEP C VIRUS AB >11.0 (0.0-0.9)
--- NOTE | 2020-10-03 08:50 | NUR ---
Pt resting in bed with his eyes closed upon arrival. Pt awakes to gentle voice. Engaged in therapeutic discussion regarding goals of care. Listened as Pt discusses his current condition. Pt reports requesting hospice. Educated on hospice philosophy with V/U made by Pt. Pt reports still wanting hospice. Pt's breakfast arrived and this RN ended visit. Palliative Care will remain available
[2020-10-03 09:11] LABS: HIV SCREEN 4TH GENERATION WRFX Non Reactive (Non Reactive)
--- NOTE | 2020-10-03 09:18 | NUR ---
Late Entry from previous note. Spoke with Pt's mother ángela by phone per verbal permission from Pt. Provided update and discussed plan for hospice. Answered questions and discussed concerns. Ángela appears to be in agreement with plan. Deffered some questions to Caremanager Monique. Ángela expresses appreciation of conversation. Spoke with Caremanchacha Monique and relayed mother's request for a phone call today after 2:00 PM. Palliative Care will remain available.
--- NOTE | 2020-10-03 11:05 | NUR ---
THIS PUBLIC INFORMATION SPECIALIST RECEIVED CALL FROM CARE MANAGEMENT INFORMING ME THAT PT WILL NOT BE RECIEVING DIALYSIS AND THAT PT IS WAITING FOR [facility].
--- NOTE | 2020-10-03 19:01 | NUR ---
PT RESTING IN BED AFTER DINNER. PT HAS REPORTED PAIN FROM 7-10 ALL SHIFT WHICH IS REGULATED VIA EMAR MEDICATIONS. PT LINE IS WNL AND SALINE LOCKED. PT AMBULATED IN ROOM WITHOUT ASSIST AND WAS EDUCATED ON USING CALL LIGHT WHEN HELP IS DESIRED. PT WAS CALM AND COOPERATIVE WITH THIS HORSE TRAINER, HOWEVER MULTIPLE REPOTS OF ANGER AND AGGITATION CAME THROUGH TODAY. PT DISCHARGE ORDERS ARE IN AND [facility]. STAFF WILL CONT. TO MONITOR FOR CHANGES.
--- NOTE | 2020-10-03 20:50 | NUR ---
ENTERED ROOM AFTER PT CALLED OUT FOR PAIN MEDS. NURSING INFORMED PT WHEN NEXT PAIN MEDS WERE AVAILABLE, REITERATING THE INTERVAL OF WHEN THEY ARE AVAILABLE. PT BECAME AGITATED AND BEGAN RAISING HIS VOICE TO NURSING. NURSING AGAIN REITERATED THE FREQUENCY IN WHICH THE MEDS WERE ORDER. PT ACCUSED NURSING OF CHANGING HIS MED ORDERS STATED, "EVERY TIME THERE IS A SHIFT CHANGE YOU NURSES JUST CHANGE MY MEDS TO WHAT YOU WANT! MY DR. TOLD ME MY MEDS WILL BE EVERY 2 HOURS, NOW GIVE ME MY PAIN MEDS!" HE THEN DEMANDED TO SPEAK WITH HIS MD. NURSING INFORMED HIM THAT HIS MD WAS NOT REGULATORY MANAGER, AND ANOTHER MD WOULD BE CONTACTED. PT BECAME EVEN MORE BELIGERANT, SLAMING HIS HAND ON THE OVER BED TABLE AND STARTED RAISING HIS VOICE LOUDER. NURSING THEN CALL OUT TO CHARGE NURSE, Sushil MCKEON RN. SHE ENTERED THE ROOM AND EXPLAINED TO THE PT THE FREQUENCY INTERVAL THAT THE MD HAD ORDERED AND THAT NURSING IS UNABLE TO CHANGE THE ORDER. HE TGEN STATED THAT HE WOULD SEE NURSING WHEN MED WAS AVAILABLE. SAFETY MEASURES IN PLACE. WILL CONTINUE TO MONITOR.
--- NOTE | 2020-10-03 21:00 | NUR ---
PT RESPECTFULLY ASKED IF HE COULD HAVE A BEDTIME SNACK. HE WAS VERY RESPECTFUL AND PLEASANT AT THIS TIME. SAFETY MEASURES IN PLACE. WILL CONTINUE TO MONITOR.
--- NOTE | 2020-10-03 22:00 | NUR ---
PT CONTINUES TO BE PLEASANT AND RESPECTFUL. NURSING ATTEMPTED TO GET HIM TO VENT HIS FRUSTRATIONS. HE DISCUSSED HIS FRUSTRATION WITH THE DAMAGE TO HIS HEART AND HE STATED THAT HE FELT IF THE [employer]ED YE[employer] SUPERVISOR ALLOWED HIM TO PROGRESS WITH HIS HEART FAILURE WHEN THEY DENIED HIM A HEART CATH DUE TO HIS METH USE. HE STATES THAT IF HE HAD KNOW THAT HE NEEDED TO QUIT METH, THEN HE WOULD HAVE. BUT BECAUSE IT WAS NOT DISCUSSED WITH HIM, THE DAMAGE IS NOT IRREVERSABLE. HE STATED THAT HE WOULD BE SENT TO [facility] TO BE MADE COMFORTABLE FOR THE REST OF WHAT IS LEFT OF HIS LIFE. ASKED FOR A POPCICLE AND SOME JELLO. NURSING PROVIDED REQUESTED ITEM, DENIES DURTHER NEEDS OR WANTS AT THIS TIME. SAFETY MEASURES IN PLACE. WILL CONTINUE TO MONITOR.
--- NOTE | 2020-10-04 05:51 | NUR ---
SHIFT SUMMARY LYING IN SEMI FOWLERS WITH EYES OPEN WHILE WATCHING TV. AAO X4, CEDENO, FOLLOWES ALL COMMANDS. HAS RESTED OFF AND ON. NO FURTHER SIGNIFICANT ISSUES OR CHANGES THIS SHIFT. CONTINUES TO BE CONTINENT OF BOWEL AND BLADDER, USES COMMODE. DENIES FURTHER NEEDS OR WANTS AT THIS TIME. SAFETY MEASURES IN PLACE. WILL CONTINUE TO MONITOR AND GIVE HAND OFF TO ONCOMING SHIFT USING SBAR.
[2020-10-04 06:56] LABS: Influenza A, PCR Negative (NEGATIVE); Influenza B, PCR Negative (NEGATIVE); Resp Syncytial Virus, PCR Negative (NEGATIVE); SARS-Cov-2 (COVID-19) PCR, MMC Negative (NEGATIVE)
--- NOTE | 2020-10-04 11:14 | NUR ---
PT BE[facility]IR. PT REPORTS NO PAIN AT THIS TIME. IV LINE DC'D AND WNL. PT EDUCATED ON PAIN MANAGMENT AND COMMUNITY RECOURSES.
== END 2020-10-04 11:31 | disposition hospice, home (50) ==
LOC: ER 22:47 → MEDS 22:48 → EDPENDDIS 10-04 09:50 → ENPENDDIS 10-04 09:50 → MEDS 10-04 11:31
PROVIDERS: Internal Medicine; Physician Assistant; ADMIT Internal Medicine
DX: K81.0 Acute cholecystitis (principal); I11.0 Hypertensive heart disease with heart failure; I50.23 Acute on chronic systolic (congestive) heart failure; I25.10 Atherosclerotic heart disease of native coronary artery without angina pectoris; G89.29 Other chronic pain; M54.9 Dorsalgia, unspecified; K74.60 Unspecified cirrhosis of liver; G47.33 Obstructive sleep apnea (adult) (pediatric); F17.200 Nicotine dependence, unspecified, uncomplicated; I42.7 Cardiomyopathy due to drug and external agent; Z79.2 Long term (current) use of antibiotics; Z79.82 Long term (current) use of aspirin; Z79.02 Long term (current) use of antithrombotics/antiplatelets; Z79.899 Other long term (current) drug therapy; Z88.8 Allergy status to other drugs, medicaments and biological substances; Z93.4 Other artificial openings of gastrointestinal tract status; Z59.0 Homelessness; Z20.828 Contact with and (suspected) exposure to other viral communicable diseases; Z23 Encounter for immunization
CPT/HCPCS: 0241U; 36415; 71045; 74177; 80053; 81001; 83690; 83735; 84100; 84484; 85025; 86317; 86704; 86705; 86708; 86709; 86803; 87077; 87086; 87186; 87340; 87389; 93005; 93010; 94660; 94762; 96365; 96375; 96376; 99285-25; A9270-GY; J0696; J1170; J1650; J2270; J2405; J3010; J7030; J7050; Q0163; Q9967